=== PATIENT | female | born 1965 | race African-American/Black ===

== ENCOUNTER 2020-04-07 14:27 | Emergency (ER) | payer SELFPAY ==
[2020-04-07] MEDS ORDERED: HEPARIN 25000 UNITS/250 ML D5W 250 ML IV ONE (15:18)
[2020-04-07] MEDS ORDERED: KETOROLAC TROMETHAMINE 30MG/ML ONE (15:38)
[2020-04-07] MEDS ORDERED: ACETAMINOPHEN-CODEINE 300/30MG TAB ONE (15:38)
== END 2020-04-07 16:02 | disposition home or self-care (01) ==
LOC: EDH 14:27
DX: M79.671 Pain in right foot (principal); I10 Essential (primary) hypertension; E11.9 Type 2 diabetes mellitus without complications; Z90.710 Acquired absence of both cervix and uterus; Z88.2 Allergy status to sulfonamides; Z79.899 Other long term (current) drug therapy
CPT/HCPCS: 73600; 73630; 99284; J1885; J1644

== ENCOUNTER 2020-07-28 10:54 | Emergency (ER) | payer SELFPAY ==
[2020-07-28 11:25] LABS: APPEARANCE,URINE Cloudy (CLEAR); BILIRUBIN,URINE Negative (NEGATIVE); COLOR,URINE Dark Yellow (YELLOW); GLUCOSE, URINE (UA) Negative (NEGATIVE); KETONES,URINE Negative (NEGATIVE); LEUKOCYTE ESTERASE ,URINE Moderate (NEGATIVE); NITRATE,URINE Negative (NEGATIVE); OCCULT BLOOD,URINE Negative (NEGATIVE); PH,URINE 6.5 (5.0-8.0); PROTEIN,URINE Trace mg/dL (NEGATIVE)
[2020-07-28 11:30] LABS: RBC,URINE None Seen /HPF (0-1)
[2020-07-28 11:31] LABS: BACTERIA,URINE Moderate /HPF (None Seen); MUCUS,URINE Few LPF (None Seen); SQUAMOUS EPITHELIAL CELL,UR Many /HPF (0-2)
[2020-07-28] MEDS ORDERED: SODIUM CHLORIDE 0.9% 1000ML 1,000 ML IV ONE (12:36)
[2020-07-28] MEDS ORDERED: ONDANSETRON HCL 4 MG/2 ML VIAL ONE (12:36)
[2020-07-28 12:54] LABS: BASOPHILS % (AUTO) 0.5 % (0.0-5.0); HEMATOCRIT 40.9 % (36-48); LYMPHOCYTES % (AUTO) 14.2 % (21.0-51.0); MEAN CORPUSCULAR HGB CONC 32.5 g/dL (32.0-36.0); MEAN CORPUSCULAR VOLUME 89.3 fL (79-99); MONOCYTES % (AUTO) 11.7 % (3.0-13.0); NEUTROPHILS % (AUTO) 72.4 % (40.0-77.0); PLATELET COUNT (AUTO) 210 K/uL (130-400); RED BLOOD CELL COUNT(AUTO) 4.58 MIL/uL (4.00-5.50); WHITE BLOOD COUNT (AUTO) 8.1 K/uL (4.8-10.8)
[2020-07-28 13:10] LABS: ALBUMIN 3.5 g/dL (3.5-5.0); BILIRUBIN,TOTAL 0.2 mg/dL (0.2-1.0); CREATININE 1.2 mg/dL (0.5-1.5); TOTAL PROTEIN, SERUM 7.6 g/dL (6.0-8.3)
[2020-07-28 13:34] LABS: B-TYPE NATRIURETIC PEPTIDE < 5 pg/mL (0-100)
[2020-07-28] MEDS ORDERED: POTASSIUM BICARB/CIT AC 25 MEQ TABLET.EFF ONE (14:18)
== END 2020-07-28 14:36 | disposition home or self-care (01) ==
LOC: EDH 10:54
DX: U07.1 COVID-19 (principal); K52.9 Noninfective gastroenteritis and colitis, unspecified; N39.0 Urinary tract infection, site not specified; E87.6 Hypokalemia; E11.9 Type 2 diabetes mellitus without complications; I10 Essential (primary) hypertension; Z88.2 Allergy status to sulfonamides; Z90.710 Acquired absence of both cervix and uterus
CPT/HCPCS: 36415; 71045; 80053; 81001; 82550; 83605; 83690; 83880; 84484; 85025; 87077; 87088; 87186; 87426; 93005; 96360; 96361; 99285; J2405; J7030; U0003

== ENCOUNTER 2020-07-29 16:48 | Inpatient (IN) | payer OTHER, SELFPAY ==
[~2020-07-29] VITALS: Ht 172.7 cm; Wt 94.6 kg
[2020-07-29 17:37] LABS: CREATININE 1.6 mg/dL (0.5-1.5); POTASSIUM 3.1 mmol/L (3.5-5.1)
[2020-07-29 17:42] LABS: ALBUMIN 3.3 g/dL (3.5-5.0); BILIRUBIN,TOTAL 0.2 mg/dL (0.2-1.0); TOTAL PROTEIN, SERUM 7.4 g/dL (6.0-8.3)
[2020-07-29 17:43] LABS: BASOPHILS % (AUTO) 0.4 % (0.0-5.0); HEMATOCRIT 42.4 % (36-48); LYMPHOCYTES % (AUTO) 26.5 % (21.0-51.0); MEAN CORPUSCULAR HEMOGLOBIN 28.5 pg (27.0-33.0); MEAN CORPUSCULAR HGB CONC 31.6 g/dL (32.0-36.0); MEAN CORPUSCULAR VOLUME 90.2 fL (79-99); MONOCYTES % (AUTO) 6.5 % (3.0-13.0); PLATELET COUNT (AUTO) 195 K/uL (130-400); RED CELL DISTRIBUTION WIDTH 15.9 % (11.0-15.5); WHITE BLOOD COUNT (AUTO) 7.7 K/uL (4.8-10.8)
[2020-07-29] MEDS ORDERED: SODIUM CHLORIDE 0.9% 1000ML 1,000 ML IV ONE (18:00)
[2020-07-29 18:17] LABS: CRP QUANTITATIVE 7.8 mg/L (0.00-9.0)
[2020-07-29] MEDS ORDERED: RENAL DOSE IV SCH (19:00)
[2020-07-29] MEDS ORDERED: RENAL DOSE IV ONE (19:15)
[2020-07-29 19:48] LABS: APPEARANCE,URINE Clear (CLEAR); BILIRUBIN,URINE Negative (NEGATIVE); COLOR,URINE Yellow (YELLOW); GLUCOSE, URINE (UA) Negative (NEGATIVE); KETONES,URINE Trace mg/dL (NEGATIVE); LEUKOCYTE ESTERASE ,URINE Small (NEGATIVE); NITRATE,URINE Negative (NEGATIVE); OCCULT BLOOD,URINE Negative (NEGATIVE); PH,URINE 5.5 (5.0-8.0); PROTEIN,URINE Negative (NEGATIVE); UROBILINOGEN,URINE 0.2 mg/dL (0.2-1.0)
[2020-07-29 19:51] LABS: CREATININE,URINE RANDOM 141 mg/dL (30-135); SODIUM,URINE RANDOM 122 mmol/l (40-220)
[2020-07-29] MEDS: ZOSYN 3.375GM+NS 50ML 50 ML IV SCH (20:00)
[2020-07-29 20:03] LABS: BACTERIA,URINE Few /HPF (None Seen); MUCUS,URINE Few LPF (None Seen); SQUAMOUS EPITHELIAL CELL,UR Many /HPF (0-2)
[2020-07-29] MEDS: ENOXAPARIN SODIUM 60 MG/0.6 ML SQ SCH (21:00)
[2020-07-29] MEDS: DOXYCYCLINE HYCLATE 100 MG TABLET PO SCH (21:00)
[2020-07-30] VITALS (7 sets, daily range): BP systolic 91–113; BP diastolic 44–74
[2020-07-30] MEDS: ZOSYN 3.375GM+NS 50ML 50 ML IV SCH ×3 (04:00→20:43)
[2020-07-30 05:51] LABS: BASOPHILS % (AUTO) 0.3 % (0.0-5.0); EOSINOPHILS % (AUTO) 2.8 % (0.0-8.0); HEMATOCRIT 37.5 % (36-48); LYMPHOCYTES % (AUTO) 24.6 % (21.0-51.0); MEAN CORPUSCULAR HEMOGLOBIN 28.6 pg (27.0-33.0); MEAN CORPUSCULAR HGB CONC 32.5 g/dL (32.0-36.0); MEAN CORPUSCULAR VOLUME 87.8 fL (79-99); MONOCYTES % (AUTO) 6.4 % (3.0-13.0); NEUTROPHILS % (AUTO) 65.5 % (40.0-77.0); PLATELET COUNT (AUTO) 193 K/uL (130-400); RED BLOOD CELL COUNT(AUTO) 4.27 MIL/uL (4.00-5.50); RED CELL DISTRIBUTION WIDTH 15.9 % (11.0-15.5)
[2020-07-30 06:14] LABS: ALBUMIN 2.8 g/dL (3.5-5.0); BILIRUBIN,TOTAL 0.2 mg/dL (0.2-1.0); CREATININE 1.1 mg/dL (0.5-1.5); POTASSIUM 3.3 mmol/L (3.5-5.1); TOTAL PROTEIN, SERUM 6.3 g/dL (6.0-8.3)
[2020-07-30] MEDS: ENOXAPARIN SODIUM 60 MG/0.6 ML SQ SCH ×2 (10:30→20:43)
[2020-07-30] MEDS: DOXYCYCLINE HYCLATE 100 MG TABLET PO SCH ×2 (10:30→20:41)
[2020-07-30] MEDS: LACTATED RINGERS 1000ML 1,000 ML IV SCH ×2 (12:11→19:54)
[2020-07-31 03:00] VITALS: BP 102/71
[2020-07-31] MEDS: ZOSYN 3.375GM+NS 50ML 50 ML IV SCH ×3 (04:41→20:07)
[2020-07-31] MEDS: LACTATED RINGERS 1000ML 1,000 ML IV SCH ×2 (04:41→15:09)
[2020-07-31 05:33] LABS: BASOPHILS % (AUTO) 0.3 % (0.0-5.0); HEMATOCRIT 38.4 % (36-48); LYMPHOCYTES % (AUTO) 19.9 % (21.0-51.0); MEAN CORPUSCULAR HEMOGLOBIN 28.8 pg (27.0-33.0); MEAN CORPUSCULAR HGB CONC 32.6 g/dL (32.0-36.0); MEAN CORPUSCULAR VOLUME 88.5 fL (79-99); MONOCYTES % (AUTO) 4.7 % (3.0-13.0); NEUTROPHILS % (AUTO) 74.5 % (40.0-77.0); PLATELET COUNT (AUTO) 193 K/uL (130-400); RED BLOOD CELL COUNT(AUTO) 4.34 MIL/uL (4.00-5.50); RED CELL DISTRIBUTION WIDTH 15.6 % (11.0-15.5); WHITE BLOOD COUNT (AUTO) 7.2 K/uL (4.8-10.8)
[2020-07-31 05:47] LABS: ALBUMIN 2.9 g/dL (3.5-5.0); BILIRUBIN,DIRECT 0.1 mg/dL (0.0-0.3); BILIRUBIN,TOTAL 0.3 mg/dL (0.2-1.0); CREATININE 1.2 mg/dL (0.5-1.5); POTASSIUM 3.1 mmol/L (3.5-5.1); TOTAL PROTEIN, SERUM 6.6 g/dL (6.0-8.3)
[2020-07-31] MEDS ORDERED: POTASSIUM CHLORIDE 20MEQ/100ML 100 ML IV PRN (07:45)
[2020-07-31] MEDS ORDERED: POTASSIUM CHLORIDE 10% ELIXIR 20 MEQ/15 ML UDCUP PO PRN (07:45)
[2020-07-31 08:00] VITALS: BP 98/70
[2020-07-31] MEDS: ENOXAPARIN SODIUM 60 MG/0.6 ML SQ SCH ×2 (08:27→20:08)
[2020-07-31] MEDS ORDERED: LORAZEPAM 0.5 MG TABLET ONE (10:58)
[2020-07-31] MEDS ORDERED: LORAZEPAM 0.5 MG TABLET PO SCH (11:44)
[2020-07-31 12:00] VITALS: BP 100/68
[2020-07-31] MEDS: POTASSIUM CHLORIDE 20 MEQ ERTAB PO PRN ×3 (12:50→17:35)
[2020-07-31 18:52] VITALS: BP 96/70
[2020-07-31 19:00] VITALS: BP 90/72
[2020-08-01] VITALS: BP 101/72
[2020-08-01] MEDS: LACTATED RINGERS 1000ML 1,000 ML IV SCH ×2 (01:45→11:45)
[2020-08-01 04:00] VITALS: BP 110/73
[2020-08-01] MEDS: ZOSYN 3.375GM+NS 50ML 50 ML IV SCH ×3 (05:31→20:06)
[2020-08-01 06:20] LABS: BASOPHILS % (AUTO) 0.3 % (0.0-5.0); HEMATOCRIT 38.6 % (36-48); LYMPHOCYTES % (AUTO) 26.2 % (21.0-51.0); MEAN CORPUSCULAR HEMOGLOBIN 28.7 pg (27.0-33.0); MEAN CORPUSCULAR HGB CONC 33.4 g/dL (32.0-36.0); MONOCYTES % (AUTO) 3.3 % (3.0-13.0); NEUTROPHILS % (AUTO) 69.8 % (40.0-77.0); PLATELET COUNT (AUTO) 191 K/uL (130-400); RED BLOOD CELL COUNT(AUTO) 4.49 MIL/uL (4.00-5.50); RED CELL DISTRIBUTION WIDTH 15.2 % (11.0-15.5); WHITE BLOOD COUNT (AUTO) 7.3 K/uL (4.8-10.8)
[2020-08-01 06:37] LABS: CREATININE 1.3 mg/dL (0.5-1.5); CRP QUANTITATIVE 32.2 mg/L (0.00-9.0); POTASSIUM 3.3 mmol/L (3.5-5.1)
[2020-08-01 08:00] VITALS: BP 109/76
[2020-08-01] MEDS: ENOXAPARIN SODIUM 60 MG/0.6 ML SQ SCH ×2 (08:25→20:08)
[2020-08-01 12:00] VITALS: BP 109/76
[2020-08-01 16:00] VITALS: BP 125/79
[2020-08-01 19:54] VITALS: BP 100/72
[2020-08-01] MEDS: GUAIFENESIN-DM 200/20 MG 10 ML PO PRN (20:06)
[2020-08-02] VITALS (7 sets, daily range): BP systolic 108–148; BP diastolic 67–83
[2020-08-02] MEDS: ZOSYN 3.375GM+NS 50ML 50 ML IV SCH ×3 (04:34→20:36)
[2020-08-02 06:10] LABS: BASOPHILS % (AUTO) 0.2 % (0.0-5.0); HEMATOCRIT 39.3 % (36-48); LYMPHOCYTES % (AUTO) 30.9 % (21.0-51.0); MEAN CORPUSCULAR HEMOGLOBIN 28.5 pg (27.0-33.0); MEAN CORPUSCULAR HGB CONC 33.6 g/dL (32.0-36.0); MEAN CORPUSCULAR VOLUME 84.9 fL (79-99); MONOCYTES % (AUTO) 3.6 % (3.0-13.0); NEUTROPHILS % (AUTO) 64.4 % (40.0-77.0); PLATELET COUNT (AUTO) 173 K/uL (130-400); RED BLOOD CELL COUNT(AUTO) 4.63 MIL/uL (4.00-5.50); RED CELL DISTRIBUTION WIDTH 15.2 % (11.0-15.5); WHITE BLOOD COUNT (AUTO) 5.5 K/uL (4.8-10.8)
[2020-08-02] MEDS: POTASSIUM CHLORIDE 20 MEQ ERTAB PO PRN (06:11)
[2020-08-02 06:34] LABS: CREATININE 1.2 mg/dL (0.5-1.5); MAGNESIUM 1.9 mg/dL (1.80-2.40); POTASSIUM 3.7 mmol/L (3.5-5.1)
[2020-08-02] MEDS: ENOXAPARIN SODIUM 60 MG/0.6 ML SQ SCH ×2 (09:50→20:36)
[2020-08-02] MEDS ORDERED: SODIUM CHLORIDE 0.9% 100 ML IV ONE (13:41)
[2020-08-02] MEDS ORDERED: METF-446 PO (15:19)
[2020-08-02] MEDS ORDERED: LISI40TA9 PO (15:19)
[2020-08-02] MEDS ORDERED: HYDR25TA PO (15:19)
[2020-08-03 03:12] VITALS: BP 107/80
[2020-08-03] MEDS: ZOSYN 3.375GM+NS 50ML 50 ML IV SCH ×3 (04:14→20:08)
[2020-08-03 06:00] LABS: BASOPHILS % (AUTO) 0.2 % (0.0-5.0); EOSINOPHILS % (AUTO) 2.9 % (0.0-8.0); HEMATOCRIT 40.4 % (36-48); LYMPHOCYTES % (AUTO) 21.2 % (21.0-51.0); MEAN CORPUSCULAR HEMOGLOBIN 28.5 pg (27.0-33.0); MEAN CORPUSCULAR HGB CONC 33.4 g/dL (32.0-36.0); MEAN CORPUSCULAR VOLUME 85.4 fL (79-99); MONOCYTES % (AUTO) 3.4 % (3.0-13.0); NEUTROPHILS % (AUTO) 71.3 % (40.0-77.0); PLATELET COUNT (AUTO) 196 K/uL (130-400); RED BLOOD CELL COUNT(AUTO) 4.73 MIL/uL (4.00-5.50); RED CELL DISTRIBUTION WIDTH 15.3 % (11.0-15.5); WHITE BLOOD COUNT (AUTO) 6.3 K/uL (4.8-10.8)
[2020-08-03 06:19] LABS: ALBUMIN 2.7 g/dL (3.5-5.0); BILIRUBIN,TOTAL 0.3 mg/dL (0.2-1.0); CREATININE 1.2 mg/dL (0.5-1.5); CRP QUANTITATIVE 30.8 mg/L (0.00-9.0); POTASSIUM 3.6 mmol/L (3.5-5.1); TOTAL PROTEIN, SERUM 7.1 g/dL (6.0-8.3)
[2020-08-03 08:00] VITALS: BP 114/75
[2020-08-03] MEDS: ENOXAPARIN SODIUM 60 MG/0.6 ML SQ SCH ×2 (08:32→20:08)
[2020-08-03 12:00] VITALS: BP 101/61
[2020-08-03 16:00] VITALS: BP 140/77
[2020-08-03 20:00] VITALS: BP 100/55
[2020-08-03] MEDS: GUAIFENESIN-DM 200/20 MG 10 ML PO PRN (20:19)
[2020-08-04] MEDS: GUAIFENESIN-DM 200/20 MG 10 ML PO PRN (01:40)
[2020-08-04 04:00] VITALS: BP 114/66
[2020-08-04] MEDS: ZOSYN 3.375GM+NS 50ML 50 ML IV SCH ×2 (04:18→12:00)
[2020-08-04 05:51] LABS: BASOPHILS % (AUTO) 0.1 % (0.0-5.0); EOSINOPHILS % (AUTO) 0.1 % (0.0-8.0); HEMATOCRIT 39.1 % (36-48); LYMPHOCYTES % (AUTO) 20.1 % (21.0-51.0); MEAN CORPUSCULAR HEMOGLOBIN 27.9 pg (27.0-33.0); MEAN CORPUSCULAR HGB CONC 32.7 g/dL (32.0-36.0); MEAN CORPUSCULAR VOLUME 85.4 fL (79-99); MONOCYTES % (AUTO) 3.6 % (3.0-13.0); NEUTROPHILS % (AUTO) 75.1 % (40.0-77.0); PLATELET COUNT (AUTO) 233 K/uL (130-400); RED BLOOD CELL COUNT(AUTO) 4.58 MIL/uL (4.00-5.50); RED CELL DISTRIBUTION WIDTH 15.1 % (11.0-15.5); WHITE BLOOD COUNT (AUTO) 6.7 K/uL (4.8-10.8)
[2020-08-04 06:06] LABS: CREATININE 1.1 mg/dL (0.5-1.5); POTASSIUM 3.5 mmol/L (3.5-5.1)
[2020-08-04 07:33] VITALS: BP 108/68
[2020-08-04] MEDS: ENOXAPARIN SODIUM 60 MG/0.6 ML SQ SCH (08:36)
[2020-08-04 11:30] VITALS: BP 122/77
[2020-08-04 12:51] LABS: HEMOGLOBIN A1C 6.7 % (4.0-6.0)
[2020-08-04 16:39] VITALS: BP 116/79
== END 2020-08-04 17:30 | DRG 871 ==
LOC: EDH 16:48 → EDHIP 16:49 → 2AH 07-30 00:40
PROVIDERS: ADMIT Internal Medicine; ATTEND Internal Medicine
DX: A41.9 Sepsis, unspecified organism (principal); U07.1 COVID-19; J12.82 Pneumonia due to coronavirus disease 2019; N17.0 Acute kidney failure with tubular necrosis; K85.90 Acute pancreatitis without necrosis or infection, unspecified; N18.2 Chronic kidney disease, stage 2 (mild); Z90.710 Acquired absence of both cervix and uterus; I12.9 Hypertensive chronic kidney disease with stage 1 through stage 4 chronic kidney disease, or unspecified chronic kidney disease; E11.22 Type 2 diabetes mellitus with diabetic chronic kidney disease; E86.9 Volume depletion, unspecified; Z88.2 Allergy status to sulfonamides; R03.1 Nonspecific low blood-pressure reading
CPT/HCPCS: 36415; 70450; 71045; 74181; 76705; 80048; 80053; 80076; 81001; 81025; 82550; 82570; 82728; 82948; 83036; 83605; 83615; 83690; 83735; 83880; 84145; 84300; 84484; 85025; 85378; 86140; 86850; 86900; 86901; 87040; 87088; 87426; 87804; 93005; 93306; 93356; 93970; G0378; J1650; J2543; J7120

== ENCOUNTER 2023-04-11 12:26 | Emergency (ER) | payer BC, OTHER ==
[~2023-04-11] VITALS: Ht 172.7 cm; Wt 89.4 kg
[2023-04-11 12:31] VITALS: BP 113/82; PULSE 102; RESP 16; O2SAT 99
[2023-04-11] MEDS ORDERED: DEXAMETHASONE SOD PHOSPHATE 4 MG/ML 1ML VIAL IM ONE (13:30)
[2023-04-11] MEDS ORDERED: GUAIFENESIN/DEXTROMETHORPHAN 1 EACH TAB.SR.12H PO ONE (13:30)
[2023-04-11 13:38] LABS: APPEARANCE,URINE CLOUDY (CLEAR); BILIRUBIN,URINE NEGATIVE (NEGATIVE); COLOR,URINE LIGHT-YELLOW (YELLOW); GLUCOSE, URINE (UA) NEGATIVE (NEGATIVE); KETONES,URINE NEGATIVE (NEGATIVE); LEUKOCYTE ESTERASE ,URINE 500 Leu/uL (NEGATIVE); NITRATE,URINE NEGATIVE (NEGATIVE); OCCULT BLOOD,URINE NEGATIVE (NEGATIVE); PROTEIN,URINE 30 mg/dL (NEGATIVE); UROBILINOGEN,URINE 0.2 mg/dL (0.2-1.0)
[2023-04-11 13:44] LABS: ADD UA MICROSCOPIC YES
[2023-04-11 13:46] LABS: BACTERIA,URINE RARE /HPF (None Seen); MUCUS,URINE RARE LPF (None Seen); SQUAMOUS EPITHELIAL CELL,UR MANY /HPF (0-2)
[2023-04-11 14:28] LABS: RAPID GROUP A STREP negative (NEGATIVE)
[2023-04-11 14:30] LABS: SARS-CoV-2, RNA, NAAT NEGATIVE SARS CoV-2 (NEGATIVE)
[2023-04-11 14:38] LABS: INFLUENZA TYPE B Negative For Type B (NEGATIVE)
[2023-04-11 14:48] LABS: INFLUENZA TYPE A Positive For Type A (NEGATIVE)
[2023-04-11] MEDS ORDERED: OSEL75 PO (14:56)
[2023-04-11] MEDS ORDERED: FLUT16H NASAL (14:56)
[2023-04-11] MEDS ORDERED: CEPH500B PO (14:56)
[2023-04-11] MEDS ORDERED: CEFTRIAXONE 1G VIAL IM ONE (15:00)
[2023-04-11] MEDS ORDERED: OSELTAMIVIR PHOSPHATE 75 MG CAP PO ONE (15:00)
== END 2023-04-11 15:19 | disposition home or self-care (01) ==
LOC: EDH 12:26
DX: J11.1 Influenza due to unidentified influenza virus with other respiratory manifestations (principal); N39.0 Urinary tract infection, site not specified; R05.9 Cough, unspecified; R09.81 Nasal congestion; Z20.822 Contact with and (suspected) exposure to COVID-19
CPT/HCPCS: 99284; 71045; 87635; 87088; 87880; 87804 ×2; 81001; 96372 ×2; J1100; C9803; J0696

== ENCOUNTER 2024-12-30 18:57 | Inpatient (IN) | payer SELFPAY ==
[~2024-12-30] VITALS: Ht 170.2 cm; Wt 100.3 kg
[~2024-12-30 18:57] MED LIST: CEPH500B PO; FLUT16H NASAL; OSEL75 PO
[2024-12-30 19:54] LABS: IMMATURE GRANULOCYTE ABSOLUTE 0.04 K/uL (0-1); NUCLEATED RED BLOOD CELLS 0.3 % (0.0-0.19); PLATELET COUNT (AUTO) 212 K/uL (130-400); RED BLOOD CELL COUNT(AUTO) 3.37 MIL/uL (4.00-5.50); RED CELL DISTRIBUTION WIDTH 19.3 % (11.0-15.5); WHITE BLOOD COUNT (AUTO) 6.4 K/uL (4.8-10.8)
--- NOTE | 2024-12-30 20:04 | HMCIMG ---
CLINICAL INFORMATION Shortness of breath COMPARISON None. TECHNIQUE Frontal view chest. FINDINGS Lines and tubes: None Lungs: Hazy opacities in the left lung base, may be due to poor radiographic penetration or layering pleural effusion. No dense consolidation. Pleura: Unremarkable. No effusion or pneumothorax. Cardiomediastinal Silhouette: Unremarkable. Bones: Normal for age. Soft Tissues: Bilateral breast spacers. IMPRESSION Hazy opacities in the left lung base, may be due to poor radiographic penetration or layering pleural effusion. No dense consolidation. Consider follow-up two-view radiograph. /[place]
[2024-12-30 20:14] LABS: CREATININE 1.5 mg/dL (0.5-1.0); GLOMERULAR FILTR. RATE CALC 40.0 mL/min (>90); GLUCOSE,RANDOM 110.0 mg/dL (70-105); SODIUM SERUM 141.0 mmol/L (136-145); UREA NITROGEN, BLOOD 27.0 mg/dL (7-18)
--- NOTE | 2024-12-30 20:33 | HMCIMG ---
CLINICAL INFORMATION Bilateral lower extremity swelling COMPARISON None. TECHNIQUE Mcqueen scale, color flow, and spectral Doppler sonography of the deep venous system of the Bilateral lower extremity FINDINGS RIGHT Common femoral vein: Patent and easily compressible without intraluminal thrombus. Femoral vein: Patent and easily compressible without intraluminal thrombus. Popliteal vein: Patent and easily compressible without intraluminal thrombus. Doppler analysis: Normal venous flow including appropriate response to Valsalva, respiratory variation, and calf augmentation. CALF Posterior tibial vein: Patent and easily compressible without intraluminal thrombus. Peroneal veins: Patent and easily compressible without intraluminal thrombus. LEFT Common femoral vein: Patent and easily compressible without intraluminal thrombus. Femoral vein: Patent and easily compressible without intraluminal thrombus. Popliteal vein: Patent and easily compressible without intraluminal thrombus. Doppler analysis: Normal venous flow including appropriate response to Valsalva, respiratory variation, and calf augmentation. CALF Posterior tibial vein: Patent and easily compressible without intraluminal thrombus. Peroneal veins: Patent and easily compressible without intraluminal thrombus. IMPRESSION No deep venous thrombosis. /[place]
--- NOTE | 2024-12-30 21:44 | HP ---
History of Present Illness Reason for Visit: lower extremity edema History of Present Illness Ms. Peres is a 59-year-old female that was seen and examined today on 12/30/2024. Patient is a good historian of personal health Patient reports that she came to the emergency department with a chief complaint of lower extremity edema. Onset was two weeks ago. Location is bilateral lower extremities. Duration is on and off progressively getting worse over the last two months. There was no alleviating factors. There was no aggravating factors. Patient denies any associated shortness of breath or chest pain. Today in the emergency department creatinine 1.5, BUN 27, no urinalysis has been collected or sent to lab, chest x-ray shows left lower lobe opacities, venous ultrasound is unremarkable. Emergency room physician recommended that patient be admitted with a diagnosis of pneumonia and acute kidney injury. Past Medical History ADDITIONAL PAST MEDICAL HISTORY: [Diabetes mellitius type2, hypertension, breast CA getting treatment at [facility] with Dr. Torres, hyperlipidemia, asthma, DVT with right lower extremity filter in place, on chronic anticoagulation with Eliquis 5 mg twice daily SOCIAL HISTORY: [Negative for smoking, alcohol use, drug use. Patient lives wi th her son, Kwame Peres . Patient is typically independent of all her ADLs. Patient denies difficulty paying her bills.] SURGICAL HISTORY: [Right lower extremity DVT filter, lumpectomy, bilateral mastectomy with placement of expanders pending reconstructive breast surgery] Review of Systems General: No Fever, No Chills, No Night Sweats, No Fatigue, No Malaise, No Appetite, No Other HEENT: No Head Aches, No Visual Changes, No Eye Pain, No Ear Pain, No Dysphasia, No Sinus Congestion, No Post Nasal Drip, No Sore Throat, No Other Pulmonary: No Dyspnea, No Cough, No Pleuritic Chest Pain, No Other Cardiovascular: Edema; No: Chest Pain, Palpitations, Orthopnea, Paroxysmal Noc. Dyspnea, Lt Headedness, Other Gastrointestinal: No: Nausea, Vomiting, Abdominal Pain, Diarrhea, Constipation, Melena, Hematochezia, Other Genitourinary: No Dysuria, No Frequency, No Incontinence, No Hematuria, No Retention, No Other Musculoskeletal: No: other, neck pain, shoulder pain, arm pain, back pain, hand pain, leg pain, foot pain Skin: No Urticaria, No Rash, No Other Neurological: No: Weakness, Numbness, Incoordination, Change in speech, Confusion, Seizures, Other Allergies: Coded Allergies: Sulfa (Sulfonamide Antibiotics) (Verified Allergy, Unknown, 07/29/20) Scheduled Cephalexin Monohydrate (Keflex), 500 MG PO TID Fluticasone Propionate (Flonase Nasal [place]), 50 MCG NASAL ONCE Oseltamivir Phosphate (Tamiflu), 75 MG PO BID Exam Vital Signs Vital Signs Date Time Temp Pulse Resp B/P (MAP) Pulse Ox O2 Delivery O2 Flow Rate FiO2 12/30/24 19:15 98.6 87 18 166/89 96 Room Air* 0 21 General Appearance: Alert, Oriented X3, Cooperative, mild distress HEENT: Atraumatic, EOMI Respiratory: Other (Left lower lobe rhonchi) Cardiovascular: Regular rate, Regular rhythm, Normal S1, Normal S2 Abdominal: No tenderness Extremities: No edema Skin: No rashes, No breakdown, No significant lesion Neuro: Normal gait, Normal speech, Strength at 5/5 X4 ext, Sensation intact, Cranial nerves 3-12 NL Psych/Mental Status: Mental status NL, Mood NL, Thoughts/Content NL Assessment/Plan ASSESSMENT: [ Pneumonia, POA Acute kidney injury, POA Diabetes mellitius type2 Hypertension Breast CA Asthma History of DVT on chronic anticoagulation with Eliquis Hyperlipidemia PLAN: [ Admit patient to medical floor as inpatient status. Pneumonia: Empiric antibiotic therapy with doxycycline and Rocephin Check Sputum culture, follow up with the results Supportive treatment with Tylenol, guaifenesin DuoNebs every 6 hours Acute kidney injury: Calculate FENA Check urine sodium, creatinine, osmolality Avoid nephrotoxic agents when possible Renally dose all medications when possible Patient will be followed by Nephrology Service, Dr. Marte Lactated Ringer's at 75 mL/HR Monitor patient's labs. Weight patient daily. Monitor intake and output. Diabetes mellitus type 2: Check hemoglobin A1c in a.m. Glucometer checks a.c. and HS 1800 ADA diet Humulin R sliding scale Hypertension, asthma, hyperlipidemia, history of DVT: At time of admission home medications have not been reconciled Consider resuming home medications once they have been reconciled For now: Hydralazine 10 mg IV every 4 hours for systolic blood pressure greater than 160 mmHg Administered patient's home dose of Eliquis 5 mg by mouth twice daily As-needed albuterol for shortness of breath or wheezing 2.5 mg nebulized Atorvastatin 40 mg by mouth once daily Breast CA: Have patient follow up with her oncologist, Dr. Torres in the outpatient setting. Patient to follow up at [facility], [place] GI prophylaxis, Protonix DVT prophylaxis, resume patient's DOAC, heparin ADVANCED CARE PLANNING 1. Which of the following were discussed? Hospice Care - Yes Therapeutic options - yes Advance Directives - Yes - patient states he does not have any advance directives in place at this time, however her son can make decisions for her if she becomes unable. Other discussions - patient wishes to remain a full code 2. Discussed with who? Patient 3. Voluntary nature of this service was explained to the patient? Yes 4. Amount of time spent - ___16 minutes____ 5. Reviewed by Physician? (if this service was performed by NPP) Yes This document was generated in part using voice recognition software, occasional wrong word or sound alike substitutions may have occurred due to the inherent limitations of voice recognition software. Read the chart carefully and recognize using context, where the substitutions have occurred. Although every effort was made to edit the content, warehouse receiving clerk and typing errors may occur ATTESTATION BY PHYSICIAN I have seen and examined the patient. I reviewed the documentation, medical decision making, and treatment plan as noted by the mid-level provider above. I agree with the findings and plan of care. ] RAVI BRANNON [facility] Dec 30, 2024 21:44
--- NOTE | 2024-12-30 22:17 | ERN ---
General Chief Complaint: LOWER EXTREMITY EDEMA Stated Complaint: BLE SWELLING Time Seen by MD: 19:03 Time Seen by Midlevel: 19:03 Source: patient History of Present Illness Initial Comments 59-year-old female who presents to the emergency department due to bilateral lower extremity swelling. Patient has a history of pulmonary embolisms, DVTs therefore her PCP's referred her to the emergency department to rule out DVTs. Patient reports shortness of breath however states that is chronic ever since she got sick from COVID. Denies further associated symptoms. PMHx breast cancer, HTN, DM, PE, DVT Allergies: Coded Allergies: Sulfa (Sulfonamide Antibiotics) (Verified Allergy, Unknown, 07/29/20) Home Meds Active Scripts Fluticasone Propionate (Flonase Nasal [place]) 50 Mcg/Actuation [place], 50 MCG NASAL ONCE, #1 BOTTLE 0 Refills Prov:KIRK MILLER [facility] 04/11/23 Cephalexin Monohydrate (Keflex) 500 Mg Cap, 500 MG PO TID for 7 Days, #21 CAP 0 Refills Prov:KIRK MILLER [facility] 04/11/23 Oseltamivir Phosphate (Tamiflu) 75 Mg Cap, 75 MG PO BID for 5 Days, #10 CAP 0 Refills Prov:KIRK MILLER [facility] 04/11/23 Past Medical History Past Medical History: Cancer, Diabetes-Type II, DVT, High Cholesterol, Hypertension Medical History Other: BREAST CA Past Surgical History: Hysterectomy Surgical History Other: DOUBLE MASTECTOMY ROS Dictation Constitutional: Negative for fever,chills, and weight loss Eyes: Negative for injury, pain,redness, and discharge ENT: Negative for injury,pain or swelling Cardiovascular: Positive bilateral lower extremity swelling Negative for chest pain, palpitations Respiratory: Positive shortness of breath Negative for cough, and wheezing, Abdomen/GI: Negative for abdominal pain, nausea, vomiting, diarrhea, and constipation Back: Negative for injury and pain : Negative for painful urination, bleeding or discharge MS/Extremity: Negative for injury and deformity Skin: Negative for rash, and discoloration Neuro: Negative for headache, weakness, numbness, tingling, and seizure Psych: Negative for suicide ideation, homicidal ideation, and hallucinations Physical Exam Physical Exam Dictation General: awake, alert, no acute distress Head/Face: Normocephalic, atraumatic Eyes: PERRL, EOMI, normal conjunctiva ENT: oral cavity clear, oral mucosa moist Neck: Supple, normal range of motion Cardiovascular: RRR, normal S1/S2. Bilateral lower extremity edema Respiratory: CTAB, no respiratory distress, no rales or wheezes Skin: Warm, dry, normal turgor, no rash MS/Extremity: Pulses equal, no cyanosis, neurovascular intact, FROM Neuro: COAx4, GCS 15, strength 5/5, CN 2-12 intact, normal cerebellar exam, normal gait Psych: Normal behavior, mood, and affect normal Results Laboratory and Microbiology Lab and Micro Result Labs Reviewed?: Yes EKG/XRAY/US/CT/MRI X-RAY Comment REASON: SOB ORDERING PHYSICIAN: INA ARMIREZ PROCEDURE: CXR1VW - CHEST 1VW CLINICAL INFORMATION Shortness of breath COMPARISON None. TECHNIQUE Frontal view chest. FINDINGS Lines and tubes: None Lungs: Hazy opacities in the left lung base, may be due to poor radiographic penetration or layering pleural effusion. No dense consolidation. Pleura: Unremarkable. No effusion or pneumothorax. Cardiomediastinal Silhouette: Unremarkable. Bones: Normal for age. Soft Tissues: Bilateral breast spacers. IMPRESSION Hazy opacities in the left lung base, may be due to poor radiographic penetration or layering pleural effusion. No dense consolidation. Consider follow-up two-view radiograph. /[place] DICTATED BY: GURJIT BUCKNER MD DATE: 12/30/242102 Ultrasound Comment REASON: R/O DVT, LE swelling ORDERING PHYSICIAN: INA RAMIREZ PROCEDURE: VENOUS BONITA - US VENOUS DOPPLER BILATERAL CLINICAL INFORMATION Bilateral lower extremity swelling COMPARISON None. TECHNIQUE Mcqueen scale, color flow, and spectral Doppler sonography of the deep venous system of the Bilateral lower extremity FINDINGS RIGHT Common femoral vein: Patent and easily compressible without intraluminal thrombus. Femoral vein: Patent and easily compressible without intraluminal thrombus. Popliteal vein: Patent and easily compressible without intraluminal thrombus. Doppler analysis: Normal venous flow including appropriate response to Valsalva, respiratory variation, and calf augmentation. CALF Posterior tibial vein: Patent and easily compressible without intraluminal thrombus. Peroneal veins: Patent and easily compressible without intraluminal thrombus. LEFT Common femoral vein: Patent and easily compressible without intraluminal thrombus. Femoral vein: Patent and easily compressible without intraluminal thrombus. Popliteal vein: Patent and easily compressible without intraluminal thrombus. Doppler analysis: Normal venous flow including appropriate response to Valsalva, respiratory variation, and calf augmentation. CALF Posterior tibial vein: Patent and easily compressible without intraluminal thrombus. Peroneal veins: Patent and easily compressible without intraluminal thrombus. IMPRESSION No deep venous thrombosis. /[place] DICTATED BY: GURJIT BUCKNER MD DATE: 12/30/242131 MDM MDM: Differential diagnosis: Electrolyte imbalance, fluid overload, DVTs Rationale: 59-year-old female who presents to the emergency department due to bilateral lower extremity swelling. Patient has a history of pulmonary embolisms, DVTs therefore her PCP's referred her to the emergency department to rule out DVTs. Patient reports shortness of breath however states that is chronic ever since she got sick from COVID. Denies further associated symptoms. PMHx breast cancer, HTN, DM, PE, DVT Bilateral lower extremity edema noted. Venous ultrasound obtained negative for DVTs. Labs obtained indicate anemia with hemoglobin of 10.5, BUN 2, creatinine 1.5. Compared with lab results that patient had from two weeks ago previous creatinine was 1.08. Chest x-ray shows hazy opacities of the left lung. Pending UA. Patient was educated on findings, diagnosis, decision for admission. Patient verbalized understanding and agrees with admission. Case discussed with hospitalist who accepts admission. Previous outside records reviewed: Old ER visits. Risk of complication and/or morbidity or mortality of patient management: None Medications-Per medication reconciliation Need for hospitalization: Patient does meet criteria for hospitalization. Need for emergency major/minor surgery: No There are no social concerns with this patient. Prescription drug management Prescriptions will include symptomatic care Patient's prior external medical records from other ER visits were reviewed by me as indicated. Prior testing and results from previous visits were reviewed. Prior tests were taken into account with medical decision making and resource utilization, independent historian/historians were used to obtain complete medical history. I independently interpreted the test that were performed, results were reviewed by me and considered findings on radiology if ordered. Medical management and examination interpretation discussions were had by me with other qualified healthcare professionals as indicated for the patient's care. ED Course Vital Signs Date Time Temp Pulse Resp B/P (MAP) Pulse Ox O2 Delivery O2 Flow Rate FiO2 12/30/24 18:58 98.1 80 16 156/86 99 Room Air 0 DX & DISP Disposition: Inpatient Departure Impression: Primary Impression: JAVIER (acute kidney injury) Condition: Stable Referrals: JEREMIAH IDAZ (PCP) I performed the substantive portion of the visit. I have reviewed and personally made and approve the management plan that is documented in the notes by myself or the BOB. I acknowledge full responsibility for the patient's management plan. INA RAMIREZ Dec 30, 2024 22:17
[2024-12-30] MEDS: LACTATED RINGERS 1000ML 1,000 ML IV SCH (22:34)
[2024-12-30] MEDS: DOXYCYCLINE 100MG+NS 250ML 250 ML IV SCH (23:08)
[2024-12-31] VITALS (14 sets, daily range): BP systolic 123–162; BP diastolic 78–97; PULSE 62–85; RESP 18–20; TEMP 97.3–98.2; O2SAT 95–100
[2024-12-31] MEDS: SODIUM CHLORIDE 3% FOR INHALATION 4 ML/AMP VIAL.NEB IH ONE (00:34)
--- NOTE | 2024-12-31 03:16 | NUR ---
REPORT GIVEN TO NURSE HARRINGTON, ALL QUESTIONS ANSWERED AT THIS TIME.
[2024-12-31 03:21] LABS: APPEARANCE,URINE CLEAR (CLEAR); GLUCOSE, URINE (UA) NEGATIVE (NEGATIVE); LEUKOCYTE ESTERASE ,URINE 500 Leu/uL (NEGATIVE); NITRATE,URINE NEGATIVE (NEGATIVE); OCCULT BLOOD,URINE SMALL (NEGATIVE)
[2024-12-31 03:25] LABS: CREATININE,URINE RANDOM 66.95 mg/dL (30-135)
[2024-12-31 03:36] LABS: ADD UA MICROSCOPIC YES
[2024-12-31 03:38] LABS: SQUAMOUS EPITHELIAL CELL,UR FEW /HPF (0-2)
--- NOTE | 2024-12-31 03:50 | NUR ---
ADMISSION NOTE PATIENT RECEIVED TO ROOM 406. PATIENT ALERT, ORIENTED, AND ABLE TO MAKE NEEDS KNOWN. PATIENT SETTLED ON SCDS, ON ROOM AIR AT THIS TIME. HOME MEDS CONFIRMED. CALL LIGHT IN REACH OF PATIENT.
[2024-12-31] MEDS ORDERED: ALPH600C8 PO (04:53)
[2024-12-31] MEDS ORDERED: HYDR-4060 PO (04:53)
[2024-12-31] MEDS ORDERED: BUDE0.5A3 NEB (04:53)
[2024-12-31] MEDS ORDERED: ALBU18HF7 IH (04:53)
[2024-12-31] MEDS ORDERED: LETR2.5T7 PO (04:53)
[2024-12-31] MEDS ORDERED: PREG150C47 PO (04:53)
[2024-12-31] MEDS ORDERED: LATA2.5D7 OP (04:53)
[2024-12-31] MEDS ORDERED: PROC-3 PO (04:53)
[2024-12-31] MEDS ORDERED: KETO15CR2 TP (04:53)
[2024-12-31] MEDS ORDERED: EZET10TA48 PO (04:53)
[2024-12-31] MEDS ORDERED: LISI40TA15 PO (04:53)
[2024-12-31] MEDS ORDERED: APIX2.5T PO (04:53)
[2024-12-31] MEDS ORDERED: TRAM50TA4 PO (04:53)
[2024-12-31] MEDS ORDERED: METF-444 PO (04:53)
[2024-12-31] MEDS ORDERED: AMLO5TAB6 PO (04:53)
[2024-12-31] MEDS ORDERED: ACET-3859 PO (04:53)
[2024-12-31] MEDS ORDERED: LOPE2 PO (04:55)
[2024-12-31] MEDS: ALBUTEROL 0.083% 2.5 MG/3 ML INH IH SCH (06:00)
[2024-12-31 06:21] LABS: IMMATURE GRANULOCYTE ABSOLUTE 0.04 K/uL (0-1); NUCLEATED RED BLOOD CELLS 0.0 % (0.0-0.19); PLATELET COUNT (AUTO) 184 K/uL (130-400); RED BLOOD CELL COUNT(AUTO) 3.36 MIL/uL (4.00-5.50); RED CELL DISTRIBUTION WIDTH 19.1 % (11.0-15.5); WHITE BLOOD COUNT (AUTO) 5.1 K/uL (4.8-10.8)
--- NOTE | 2024-12-31 06:37 | EKG ---
[facility] Test Date: 2024-12-30 Test Time: 20:23:41 Pat Name: YNES SOLORZANO Department: [facility] Room: 406 1 Gender: F Hospice Clinical Supervisor: [id number] : 1965 Requested By: INA RAMIREZ Order Number: [id number] Reading MD: Nona Haynes Measurements Intervals Fluker Rate: 66 P: 24 NC: 203 QRS: -10 QRSD: 93 T: 25 QT: 407 QTc: 428 Interpretive Statements Sinus rhythm Borderline prolonged NC interval Probable lateral infarct, old Compared to ECG 07/29/2020 17:40:31 No significant changes Electronically Signed On 12-31-2024 11:21:33 CDT by Nona Haynes Please click the below link to view image of tracing.
[2024-12-31 06:47] LABS: CREATININE 1.5 mg/dL (0.5-1.0); GLOMERULAR FILTR. RATE CALC 40.0 mL/min (>90); GLUCOSE,RANDOM 104.0 mg/dL (70-105); PHOSPHORUS 3.3 mg/dL (2.5-4.9); SODIUM SERUM 143.0 mmol/L (136-145); UREA NITROGEN, BLOOD 25.0 mg/dL (7-18)
[2024-12-31] MEDS ORDERED: NON-FORMULARY MEDICATION 1 EACH (Albuterol Sulfate (Ventolin Hfa) 2 PUFF) IH PRN (12:00)
[2024-12-31] MEDS ORDERED: HYDROcodone/APAP 5/325 1 TAB TABLET PO PRN (12:00)
[2024-12-31] MEDS ORDERED: LOPERAMIDE HCL 2 MG CAP PO SCH (12:00)
[2024-12-31] MEDS ORDERED: PROCHLORPERAZINE MALEATE 10 MG PO PRN (12:30)
[2024-12-31 12:32] LABS: INR 0.98 (0.85-1.15)
--- NOTE | 2024-12-31 14:03 | HMCIMG ---
EXAM: CT Chest Without Intravenous Contrast. CLINICAL HISTORY: TECHNIQUE: Axial computed tomography images of the chest without intravenous contrast. Dose reduction technique was used including one or more of the following: automated exposure control, adjustment of mA and kV according to patient size, and/or iterative reconstruction. CONTRAST: NONE COMPARISON: X-ray chest 12/30/2024, similar to prior. FINDINGS: LUNGS: No pulmonary mass. No focal airspace consolidation. PLEURAL SPACES: No pleural effusion. No pneumothorax. HEART AND MEDIASTINUM: No cardiomegaly. No significant pericardial effusion. LYMPH NODES: No lymphadenopathy. CHEST WALL AND UPPER ABDOMEN: Bilateral breast implants are seen. The upper abdominal solid organs are unremarkable. BONES: Mild degenerative changes in thoracic spine. No acute osseous abnormality. IMPRESSION: 1. No acute intra-thoracic abnormality. /[place]
--- NOTE | 2024-12-31 15:00 | NUR ---
SPEECH TRIGGER COMPLETED / [facility] Pt IS A 59 Y.O. FEMALE ADMITTED SECONDARY TO [facility] AND [facility]. Pt HAS A PAST MEDICAL HISTORY SIGNIFICANT FOR DM TYPE 2; HTN, BREAST CA, HYPERLIPIDEMIA; AND ASTHMA. PATIENT PRESENTED WITH HAZY OPACITIES IN THE LEFT LUNG BASE ON MOST RECENT CHEST X-RAY (12/30/2024). Pt CURRENTLY ON CONSISTENT CARB DIET (REGULAR TEXTURE AND THIN LIQUIDS). PER NURSE SHERMAN, Pt TOLERATING DIET WITH NO OVERT S/S OF ASPIRATION. PLEASE REQUEST SPEECH THERAPY SERVICES FOR SKILLED BEDSIDE SWALLOW EVALUATION IF Pt PRESENTS WITH +S/S OF ASPIRATION SUCH COUGH RESPONSE, THROAT CLEAR, OR WET VOCAL QUALITY DURING ORAL INTAKE. ALL QUESTIONS ANSWERED AT THIS TIME. Addendum: 01/01/[address] TERRI GOSS Amended: Links added.
--- NOTE | 2024-12-31 15:56 | CONS ---
NEPHROLOGY CONSULTATION NOTE Date/Time Patient Seen: Dec 31, 2024 1320 HISTORY OF PRESENT ILLNESS: This is a 59-year-old female with a past medical history of diabetes mellitus type 2, hypertension, breast cancer, hyperlipidemia, asthma, DVT with right lower extremity filter in place on chronic anticoagulation. She presented to the emergency room with complaints of lower extremity edema. Imaging studies were noted She was noted to have elevated BUN/creatinine We are consulted for renal failure Renal function remains elevated Electrolytes are stable. She was seen in the medical floor, in no acute distress No family at the bedside Prognosis remains guarded REVIEW OF SYSTEMS: GENERAL: Negative for any nausea, vomiting, fevers, chills, or weight loss. NEUROLOGIC: Negative for any blurry vision, blind spots, double vision, facial asymmetry, dysphagia, dysarthria, hemiparesis, hemisensory deficits, vertigo, ataxia. HEENT: Negative for any head trauma, neck trauma, neck stiffness, photophobia, phonophobia, sinusitis, rhinitis. CARDIAC: Negative for any chest pain, dyspnea on exertion, paroxysmal nocturnal dyspnea, peripheral edema. PULMONARY: Negative for any shortness of breath, wheezing, COPD, or TB exposure. GASTROINTESTINAL: Negative for any abdominal pain, nausea, vomiting, bright red blood per rectum, melena. GENITOURINARY: Negative for any dysuria, hematuria, incontinence. INTEGUMENTARY: Negative for any rashes, cuts, insect bites. RHEUMATOLOGIC: Negative for any joint pains, photosensitive rashes, history of vasculitis or kidney problems. HEMATOLOGIC: Negative for any abnormal bruising, frequent infections or bleeding. PAST MEDICAL HISTORY: Diabetes mellitus type2, hypertension, breast CA getting treatment at [facility] with Dr. Torres, hyperlipidemia, asthma, DVT with right lower extremity filter in place, on chronic anticoagulation PAST SURGICAL HISTORY: Right lower extremity DVT filter, lumpectomy, bilateral mastectomy with placement of expanders pending reconstructive breast surgery PAST SOCIAL HISTORY: Denies use of alcohol, tobacco or illicit drugs FAMILY HISTORY: Noncontributory PHYSICAL EXAM: GENERAL: Alert and oriented x 3. No acute distress. Well-nourished. EYES: EOMI. Anicteric. HENT: Moist mucous membranes. No scleral icterus. No cervical lymphadenopathy. LUNGS: Clear to auscultation bilaterally. No accessory muscle use. CARDIOVASCULAR: Regular rate and rhythm. No murmur. No JVD. ABDOMEN: Soft, non-tender and non-distended. No palpable masses. EXTREMITIES: No edema. Non-tender. Skin: No rashes or lesions. Warm. NEUROLOGIC: No focal neurological deficits. CN II-XII grossly intact, but not individually tested. PSYCHIATRIC: Cooperative. Appropriate mood and affect. MEDICATIONS: [ ] Current Medications Medications (Trade) Dose Ordered Sig/Queta Route PRN Reason Start Time Stop Time Status Last Admin Dose Admin Acetaminophen (TYLenol 325MG TAB) 650 mg Q6H PRN PO TEMPERATURE GREATER THAN 101.5 12/30/24 22:00 01/29/25 21:59 Acetaminophen/ Hydrocodone Bitart (NORco 5/325MG) 1 tab TIDP PRN PO PAIN LEVEL 4 TO 6 12/31/24 12:00 01/05/25 11:59 Albuterol (DUOneb) 1 UDVIAL [id number] IH 12/31/24 00:00 01/30/25 00:00 12/31/24 11:00 1 UDVIAL Albuterol Sulfate (Proventil 0.083% 2.5mg/3ml) 2.5 mg [id number] IH 12/31/24 06:00 01/30/25 05:59 Amlodipine Besylate (NorvASC 5MG TAB) 5 mg HS PO 12/31/24 21:00 01/30/25 20:59 Apixaban (EliquIS) 5 mg BID PO 12/31/24 09:00 01/30/25 08:59 12/31/24 08:23 5 MG Atorvastatin Calcium (LIPItor 40MG) 40 mg HS PO 12/31/24 21:00 01/30/25 20:59 Ceftriaxone Sodium (ROCEphine 1G INJ) 1 gm Q24H IV 12/30/24 22:00 01/09/25 21:59 12/30/24 22:35 1 GM Doxycycline Hyclate 250 ml @ 125 mls/hr Q12H IV 12/30/24 22:00 01/09/25 21:59 12/31/24 08:23 125 MLS/HR EZETIMIBE (Zetia) 10 mg HS PO 12/31/24 21:00 01/30/25 20:59 Guaifenesin (RobiTUSSin SUGAR-FREE 100 MG/ 5 ML UDCUP) 400 mg Q4H PRN PO cough 12/30/24 22:00 01/29/25 21:59 Heparin Sodium (Porcine) (HEParin 5,000 UNIT VIAL) 5,000 unit BID SQ 12/31/24 09:00 12/31/24 00:21 DC Home Med (Home Medication) 1 each BID PO 12/31/24 21:00 01/30/25 20:59 Home Med (Home Medication) 1 each DAILY PO 01/01/25 09:00 01/31/25 08:59 Home Med (Home Medication) 1 each Q6H PRN PO NAUSEA 12/31/24 12:30 01/30/25 12:29 Home Med (Home Medication) Alpha Lipoic Acid ... BID PO 12/31/24 21:00 01/30/25 20:59 Hydralazine HCl (APRESOLine 20MG INJ) 10 mg Q6H PRN IV For:SBP above 160;DBP above 90 12/30/24 22:00 01/29/25 21:59 Insulin Human Regular (humuLIN R 100 UNIT/ML 3ML) INSULIN SLIDING SCAL... ACHS SQ 12/31/24 07:30 01/30/25 07:29 Ketoconazole (niZORal) 1 appl DAILY PRN TP ITCHING 12/31/24 12:00 01/30/25 11:59 Lactated Ringer's 1,000 ml @ 75 mls/hr [id number] IV 12/30/24 22:00 01/29/25 21:59 12/30/24 22:34 75 MLS/HR Latanoprost (Xalatan) 1 drop HS OP 12/31/24 21:00 01/30/25 20:59 Lisinopril (Prinivil 40mg) 40 mg DAILY PO 01/01/25 09:00 01/31/25 08:59 Loperamide HCl (Imodium) 2 mg AD PO 12/31/24 12:00 01/30/25 11:59 Miscellaneous Medication (Albuterol Sulfate (Ventolin Hfa)) 2 puff Q4HPRN PRN IH wheezing 12/31/24 12:00 12/31/24 12:23 DC Morphine Sulfate (morPHINE 2MG SYG) 2 mg Q4H PRN IVP SEVERE PAIN (7-10) 12/30/24 22:00 01/06/25 21:59 Ondansetron HCl (zoFRAN 4MG INJ) 4 mg Q6H PRN IV NAUSEA/VOMITING 12/30/24 22:00 01/29/25 21:59 Pantoprazole Sodium (PROTonix 40MG TAB) 40 mg DAILY PO 12/31/24 09:00 01/30/25 08:59 12/31/24 08:23 40 MG Tramadol HCl (UltRAM) 50 mg Q6H PRN PO PAIN LEVEL 7 TO 10 12/31/24 12:00 01/05/25 11:59 Vital Signs (last 8hr) Date Time Temp Pulse Resp B/P (MAP) Pulse Ox O2 Delivery O2 Flow Rate FiO2 12/31/24 11:53 98.1 72 18 123/79 98 Room Air 21 12/31/24 11:00 71 20 12/31/24 08:00 96 Room Air* 0 21 DIAGNOSTICS / RADIOLOGY: [ Copy/paste Image report here. If no images then delete ] LABORATORY: [ ] Hematology Labs: Test 12/31/24 06:03 12/30/24 19:45 Range/Units White Blood Count 5.1 4.8-10.8 K/uL Red Blood Count 3.36 L 4.00-5.50 MIL/uL Hemoglobin 10.3 L 12.0-16.0 g/dL Hematocrit 32.1 L 36-48 % Mean Corpuscular Volume 95.5 79-99 fL Mean Corpuscular Hemoglobin 30.7 27.0-33.0 pg Mean Corpuscular Hemoglobin Concent 32.1 32.0-36.0 g/dL Red Cell Distribution Width 19.1 H 11.0-15.5 % Platelet Count 184 130-400 K/uL Mean Platelet Volume 10.9 H 7.5-10.5 fL Immature Granulocyte % (Auto) 0.8 0-1 % Neutrophils (%) (Auto) 64.3 40.0-77.0 % Lymphocytes (%) (Auto) 28.8 21.0-51.0 % Monocytes (%) (Auto) 4.7 3.0-13.0 % Eosinophils (%) (Auto) 0.6 0.0-8.0 % Basophils (%) (Auto) 0.8 0.0-5.0 % Neutrophils # (Auto) 3.3 1.8-7.7 K/uL Lymphocytes # (Auto) 1.5 1.0-4.8 K/uL Monocytes # (Auto) 0.2 0.1-1.0 K/uL Eosinophils # (Auto) 0.03 0.00-0.70 K/uL Basophils # (Auto) 0.04 0.00-0.20 K/uL Absolute Immature Granulocyte (auto 0.04 0-1 K/uL Nucleated Red Blood Cells 0.0 0.0-0.19 % Red Blood Cell Morphology See comments Chemistry Labs: Test 12/31/24 15:40 12/31/24 06:03 12/30/24 22:18 12/30/24 19:45 Range/Units Whole Blood Glucose 93 70-110 MG/DL Sodium Level 143 136-145 mmol/L Potassium Level 3.7 3.5-5.1 mmol/L Chloride Level 108 101-111 mmol/L Carbon Dioxide Level 26 21-32 mmol/L Blood Urea Nitrogen 25 H 7-18 mg/dL Creatinine 1.5 H 0.5-1.0 mg/dL Glomerular Filtration Rate Calc 40 >90 mL/min Random Glucose 104 70-105 mg/dL Total Calcium 8.8 8.5-10.1 mg/dL Phosphorus Level 3.3 2.5-4.9 mg/dL Magnesium Level 1.80 1.80-2.40 mg/dL Lactic Acid Level 1.1 0.8-2.5 mmol/L Hemoglobin A1c 6.5 H 4.0-6.0 % Estimated Average Glucose (eAG) 140 H 70-126 mg/dL Troponin I High Sensitivity 22 4-50 ng/L B-Type Natriuretic Peptide 28 0-100 pg/mL Procalcitonin < 0.05 L 0.05-0.5 ng/mL Coagulation Labs: Test 12/31/24 12:16 Range/Units Prothrombin Time 10.4 9.6-11.6 SEC Prothromb Time International Ratio 0.98 0.85-1.15 ASSESSMENT: Pneumonia, Acute kidney injury Diabetes mellitus type2 Hypertension Breast CA Asthma History of DVT on chronic anticoagulation with Eliquis Hyperlipidemia PLAN: Labs, diagnostic, radiologic exams reviewed and interpreted by myself and supervising physician. We have reviewed external records in detail Obtain complete renal ultrasound Require close monitoring of renal function and electrolytes Order CBC, CMP, uric acid, TSH, complete iron panel, ferritin and electrolytes in am BiPAP as necessary, for respiratory distress Monitor blood pressure adjust medication doses as needed Avoid hypotensive episodes May use Dilaudid 0.5 mg IV every 6 hours as needed for severe pain Monitor blood sugars Strict intake, output, and daily weight should be monitored Please renally adjust medications Avoid nephrotoxic and nonsteroidal drugs Avoid contrast if possible Will continue to monitor renal function, anemia, electrolytes Treatment plan discussed with patient Questions were answered We have discussed with the other team physicians in detail about the care plan We will continue to monitor the patient closely Thank you for allowing us to participate in the care of this patient ATTESTATION BY PHYSICIAN I have seen and examined the patient. I reviewed the documentation, medical decision making, and treatment plan as noted by the mid-level provider above. I agree with the findings and plan of care. MORRIS GAMBINO MD, [facility] Dec 31, 2024 15:56
[2024-12-31 16:13] LABS: NUCLEATED RED BLOOD CELLS 0.0 % (0.0-0.19); PLATELET COUNT (AUTO) 174.0 K/uL (130-400); RED BLOOD CELL COUNT(AUTO) 3.25 MIL/uL (4.00-5.50); RED CELL DISTRIBUTION WIDTH 19.1 % (11.0-15.5); WHITE BLOOD COUNT (AUTO) 6.0 K/uL (4.8-10.8)
--- NOTE | 2024-12-31 16:59 | HMCSR ---
APPROVED REPORT EXAM: Two-dimensional and M-mode echocardiogram with Doppler and color Doppler. INDICATION ICD: Shortness of breath R06.02 2D Dimensions RVDd3.5 cmLVEF(%)54.2 (>50%)LVED Vol(simp.)79.5 mL IVSd1.0 (0.7-1.1cm)FS(%)28 %LVES Vol(simp.)37.5 mL LVDd4.7 (3.8-5.6cm)LA (2D)3.4 (1.6-4.0cm)LVEF(%, simp.)53 % PWd1.2 (0.7-1.1cm)Ao Root(2D)3.2 (2.0-3.7cm)LA ESV INDEX (BP)27.64 mL/m2 LVDs3.4 (2.5-4.0cm)LVOT diam2.1 (1.8-2.4cm) IVC diam1.7 cm Deformation Strain Apical 4-16.6 % Apical 2-14.6 % Apical 3-10.4 % Global Strain-13.9 % M-Mode Dimensions EPSS1.2 cm LA (MM)3.3 (1.6-4.0cm) Ao Root(MM)3.0 (2.0-3.7cm) Aortic Valve AoV Vmax1.5 m/Cha Peak GR8.9 mmHgLVOT Vmax1.1 m/s AoV VTI0.3 mAo Mean GR4.7 mmHgLVOT VTI0.20 m TRISTAN (VMAX)2.39 cm2AVA (VTI) 2.4 cm2 Mitral Valve MV E Vmax65.4 cm/sDECEL Lmpr014 ms MV A Vmax84.0 cm/sP 1/2 T58 ms E/A ratio0.8MVA (PHT)3.8 cm2 TDI E/E' Medial9.2E/E' Lateral9.2 Medial E' Peak V7.10 cm/sLateral E' Peak V7.09 cm/s Pulmonary Valve PV Vmax1.0 m/sPV VTI0.24 mPV Mean GR2.2 mmHg PV Peak GR3.8 mmHg Left Ventricle The left ventricle is normal size. There is normal left ventricular wall thickness. LVEF is 50-55%. C annot rule out small apical thrombus, recommend contrast limited study. The left ventricular diastoli c function is normal. Right Ventricle The right ventricle is normal size. The right ventricular systolic function is normal. Atria The left atrium size is normal. The right atrium size is normal. Aortic Valve The aortic valve is normal in structure. No aortic regurgitation is present. There is no aortic valvu lar stenosis. Mitral Valve The mitral valve is normal in structure. There is no mitral valve regurgitation noted. There is no mi tral valve stenosis. Tricuspid Valve The tricuspid valve is normal in structure. There is no tricuspid valve regurgitation noted. Pulmonic Valve The pulmonary valve is normal in structure. There is no pulmonic valvular regurgitation. Great Vessels The aortic root is normal in size. The IVC is normal in size and collapses >50% with inspiration. Pericardium There is no pericardial effusion. Conclusion The left ventricle is normal size. LVEF is 50-55%. The left ventricular diastolic function is normal. Cannot rule out small apical thrombus, recommend contrast limited study. The right ventricle is normal size. The right ventricular systolic function is normal. The left atrium size is normal. The right atrium size is normal. No valvular pathology. There is no pericardial effusion.
--- NOTE | 2024-12-31 17:13 | PN ---
[facility] PROGRESS NOTE Date of Service: Dec 31, 2024 Time of Service: 17:12 SUBJECTIVE: The patient has been seen and examined at bedside, case discussed with the RN, no acute events overnight, the time of my visit the patient following commands company complaining of mild dry nonproductive cough, no chest pain, shortness shortness for breath, no nausea, no vomiting. BP 123/79, afebrile. Chest x-ray showing hazy opacity of left lung bases maybe due to poor radiographic penetration or layering pleural effusion, no disc consolidation. I have requested a CT of the chest for further evaluation, pulmonary consultation, requested. Follow serology test to include influenza type a and B, rapid strep, SARS antigen, Streptococcus and Legionella antigen. Continue the patient on broad-spectrum IV antibiotics. Follow results of sputum culture. REVIEW OF SYSTEMS CONSTITUTIONAL: Denies fevers, chills, or night sweats. No unintentional weight loss reported. NEUROLOGICAL: Denies headache, amaurosis fugax, motor weakness, sensory deficit, vertigo/spinning sensation, gait abnormalities, or tremors. ENT: No hearing loss, otalgia, otorrhea, rhinitis, rhinorrhea, hoarseness, or sore throat. CARDIOVASCULAR: Denies any exertional angina, dyspnea on exertion, orthopnea, paroxysmal nocturnal dyspnea, palpitations, life-threatening arrhythmias, claudication. PULMONARY: Denies any shortness of breath, cough, phlegm/sputum, hemoptysis, pleuritic chest pain. SLEEP: Denies morning headaches, daytime somnolence or napping. Denies difficulty falling asleep, staying asleep, waking from sleep. Denies knowledge of snoring. GASTROINTESTINAL: Denies any type of dysphagia to either liquids or solids. Denies nausea, vomiting, pyrosis, early satiety, abdominal pain, diarrhea, constipation, or changes in stool consistency or caliber. Denies coffee-ground emesis, hematemesis, hematochezia, or melanotic stools. GENITOURINARY: Denies frequency, urgency, nocturia, hematuria or incontinence (Storage/Irritative symptoms.) Low urinary stream, straining to void, urinary intermittency or hesitancy, splitting of the voiding stream, terminal dribbling. ENDOCRINOLOGIC: Denies polyuria, polydipsia, polyphagia or heat/cold intolerances. HEMATOLOGIC: Denies thrombophilia/previous clots, or coagulopathy/bleeding disorders. ONCOLOGIC: Denies personal history of malignancy. DERMATOLOGIC: Denies rashes or pruritus. PSYCHIATRIC: Denies any suicidal or homicidal ideation. Denies hallucinations. PHYSICAL EXAM GENERAL APPEARANCE: The patient is awake, alert, and oriented, in no acute cardiopulmonary distress. NEUROLOGICAL: Cranial nerves II-XII grossly intact. Motor is 5/5 in bilateral upper and lower extremities proximal to distal. No sensory deficits. HEENT: Face is symmetric. Pupils are equal and reactive. Extraocular movements are intact. NECK: Supple. No JVD. No thyromegaly. No submental, submandibular, pre-/ postauricular, occipital or supraclavicular lymphadenopathy. CHEST: Normal chest expansion. No Telemetry. LUNGS: Absence of any rales, rhonchi or any wheezing. CARDIOVASCULAR: Regular. S1 and S2 normal. No appreciable rubs, murmurs or gallops. ABDOMEN: Soft, nontender, and nondistended. There is no rebound, voluntary guarding, or rigidity. : Deferred. No [place]te. EXTREMITIES: Non-edematous and not cyanotic. No clubbing. Good capillary refill. SKIN: No skin breakdown. Vital Signs (last 8hr) Date Time Temp Pulse Resp B/P (MAP) Pulse Ox O2 Delivery O2 Flow Rate FiO2 12/31/24 16:00 98.2 70 20 162/97 98 Room Air 12/31/24 11:53 98.1 72 18 123/79 98 Room Air 21 12/31/24 11:00 71 20 LABS: Laboratory: Test 12/31/24 16:05 12/31/24 15:40 12/31/24 12:16 12/31/24 06:03 Range/Units White Blood Count 6.0 4.8-10.8 K/uL Red Blood Count 3.25 L 4.00-5.50 MIL/uL Hemoglobin 10.1 L 12.0-16.0 g/dL Hematocrit 30.9 L 36-48 % Mean Corpuscular Volume 95.1 79-99 fL Mean Corpuscular Hemoglobin 31.1 27.0-33.0 pg Mean Corpuscular Hemoglobin Concent 32.7 32.0-36.0 g/dL Red Cell Distribution Width 19.1 H 11.0-15.5 % Platelet Count 174 130-400 K/uL Mean Platelet Volume 10.0 7.5-10.5 fL Nucleated Red Blood Cells 0.0 0.0-0.19 % Whole Blood Glucose 93 70-110 MG/DL Prothrombin Time 10.4 9.6-11.6 SEC Prothromb Time International Ratio 0.98 0.85-1.15 Immature Granulocyte % (Auto) 0.8 0-1 % Neutrophils (%) (Auto) 64.3 40.0-77.0 % Lymphocytes (%) (Auto) 28.8 21.0-51.0 % Monocytes (%) (Auto) 4.7 3.0-13.0 % Eosinophils (%) (Auto) 0.6 0.0-8.0 % Basophils (%) (Auto) 0.8 0.0-5.0 % Neutrophils # (Auto) 3.3 1.8-7.7 K/uL Lymphocytes # (Auto) 1.5 1.0-4.8 K/uL Monocytes # (Auto) 0.2 0.1-1.0 K/uL Eosinophils # (Auto) 0.03 0.00-0.70 K/uL Basophils # (Auto) 0.04 0.00-0.20 K/uL Absolute Immature Granulocyte (auto 0.04 0-1 K/uL Sodium Level 143 136-145 mmol/L Potassium Level 3.7 3.5-5.1 mmol/L Chloride Level 108 101-111 mmol/L Carbon Dioxide Level 26 21-32 mmol/L Blood Urea Nitrogen 25 H 7-18 mg/dL Creatinine 1.5 H 0.5-1.0 mg/dL Glomerular Filtration Rate Calc 40 >90 mL/min Random Glucose 104 70-105 mg/dL Total Calcium 8.8 8.5-10.1 mg/dL Phosphorus Level 3.3 2.5-4.9 mg/dL Magnesium Level 1.80 1.80-2.40 mg/dL Test 12/31/24 03:14 12/30/24 22:18 12/30/24 19:45 Range/Units Urine Color LIGHT-YELLOW YELLOW Urine Appearance CLEAR CLEAR Urine pH 5.0 5.0-8.0 Urine Specific [place] 1.016 1.001-1.031 Urine Protein NEGATIVE NEGATIVE mg/dL Urine Glucose (UA) NEGATIVE NEGATIVE mg/dL Urine Ketones NEGATIVE NEGATIVE mg/dL Urine Occult Blood SMALL H NEGATIVE Urine Nitrate NEGATIVE NEGATIVE Urine Bilirubin NEGATIVE NEGATIVE mg/dL Urine Urobilinogen 0.2 0.2-1.0 mg/dL Urine Leukocyte Esterase 500 H NEGATIVE Emely/uL Urine RBC 6-10 H 0-1 /HPF Urine WBC 2-5 H 0-1 /HPF Urine Squamous Epithelial Cells FEW 0-2 /HPF Urine Bacteria None None Seen /HPF Urine Osmolality 597 50-1200 mOsm/kg Urine Random Creatinine 66.95 30-135 mg/dL Urine Random Sodium 118 40-220 mmol/l Lactic Acid Level 1.1 0.8-2.5 mmol/L Red Blood Cell Morphology See comments Hemoglobin A1c 6.5 H 4.0-6.0 % Estimated Average Glucose (eAG) 140 H 70-126 mg/dL Troponin I High Sensitivity 22 4-50 ng/L B-Type Natriuretic Peptide 28 0-100 pg/mL Procalcitonin < 0.05 L 0.05-0.5 ng/mL Current Medications Medications (Trade) Dose Ordered Sig/Queta Route PRN Reason Start Time Stop Time Status Last Admin Dose Admin Acetaminophen (TYLenol 325MG TAB) 650 mg Q6H PRN PO TEMPERATURE GREATER THAN 101.5 12/30/24 22:00 01/29/25 21:59 Acetaminophen/ Hydrocodone Bitart (NORco 5/325MG) 1 tab TIDP PRN PO PAIN LEVEL 4 TO 6 12/31/24 12:00 01/05/25 11:59 Albuterol (DUOneb) 1 UDVIAL Q4AMQQH 12/31/24 00:00 01/30/25 00:00 12/31/24 11:00 1 UDVIAL Albuterol Sulfate (Proventil 0.083% 2.5mg/3ml) 2.5 mg [id number] IH 12/31/24 06:00 01/30/25 05:59 Amlodipine Besylate (NorvASC 5MG TAB) 5 mg HS PO 12/31/24 21:00 01/30/25 20:59 Apixaban (EliquIS) 5 mg BID PO 12/31/24 09:00 01/30/25 08:59 12/31/24 08:23 5 MG Atorvastatin Calcium (LIPItor 40MG) 40 mg HS PO 12/31/24 21:00 01/30/25 20:59 Ceftriaxone Sodium (ROCEphine 1G INJ) 1 gm Q24H IV 12/30/24 22:00 01/09/25 21:59 12/30/24 22:35 1 GM Doxycycline Hyclate 250 ml @ 125 mls/hr Q12H IV 12/30/24 22:00 01/09/25 21:59 12/31/24 08:23 125 MLS/HR EZETIMIBE (Zetia) 10 mg HS PO 12/31/24 21:00 01/30/25 20:59 Guaifenesin (RobiTUSSin SUGAR-FREE 100 MG/ 5 ML UDCUP) 400 mg Q4H PRN PO cough 12/30/24 22:00 01/29/25 21:59 Heparin Sodium (Porcine) (HEParin 5,000 UNIT VIAL) 5,000 unit BID SQ 12/31/24 09:00 12/31/24 00:21 DC Home Med (Home Medication) 1 each BID PO 12/31/24 21:00 01/30/25 20:59 Home Med (Home Medication) 1 each DAILY PO 01/01/25 09:00 01/31/25 08:59 Home Med (Home Medication) 1 each Q6H PRN PO NAUSEA 12/31/24 12:30 01/30/25 12:29 Home Med (Home Medication) Alpha Lipoic Acid ... BID PO 12/31/24 21:00 01/30/25 20:59 Hydralazine HCl (APRESOLine 20MG INJ) 10 mg Q6H PRN IV For:SBP above 160;DBP above 90 12/30/24 22:00 01/29/25 21:59 Insulin Human Regular (humuLIN R 100 UNIT/ML 3ML) INSULIN SLIDING SCAL... ACHS SQ 12/31/24 07:30 01/30/25 07:29 Ketoconazole (niZORal) 1 appl DAILY PRN TP ITCHING 12/31/24 12:00 01/30/25 11:59 Lactated Ringer's 1,000 ml @ 75 mls/hr [id number] IV 12/30/24 22:00 01/29/25 21:59 12/30/24 22:34 75 MLS/HR Latanoprost (Xalatan) 1 drop HS OP 12/31/24 21:00 01/30/25 20:59 Lisinopril (Prinivil 40mg) 40 mg DAILY PO 01/01/25 09:00 01/31/25 08:59 Loperamide HCl (Imodium) 2 mg AD PO 12/31/24 12:00 01/30/25 11:59 Miscellaneous Medication (Albuterol Sulfate (Ventolin Hfa)) 2 puff Q4HPRN PRN IH wheezing 12/31/24 12:00 12/31/24 12:23 DC Morphine Sulfate (morPHINE 2MG SYG) 2 mg Q4H PRN IVP SEVERE PAIN (7-10) 12/30/24 22:00 01/06/25 21:59 Ondansetron HCl (zoFRAN 4MG INJ) 4 mg Q6H PRN IV NAUSEA/VOMITING 12/30/24 22:00 01/29/25 21:59 Pantoprazole Sodium (PROTonix 40MG TAB) 40 mg DAILY PO 12/31/24 09:00 01/30/25 08:59 12/31/24 08:23 40 MG Tramadol HCl (UltRAM) 50 mg Q6H PRN PO PAIN LEVEL 7 TO 10 12/31/24 12:00 01/05/25 11:59 DIAGNOSTICS / RADIOLOGY: [ ] ASSESSMENT: Pneumonia, POA Acute kidney injury, POA Diabetes mellitius type2 Hypertension Breast CA Asthma History of DVT on chronic anticoagulation with Eliquis Hyperlipidemia PLAN: The patient has been seen and examined at bedside, case discussed with the RN, no acute events overnight, the time of my visit the patient following commands company complaining of mild dry nonproductive cough, no chest pain, shortness shortness for breath, no nausea, no vomiting. BP 123/79, afebrile. Chest x-ray showing hazy opacity of left lung bases maybe due to poor radiographic penetration or layering pleural effusion, no disc consolidation. I have requested a CT of the chest for further evaluation, pulmonary consultation, requested. Follow serology test to include influenza type a and B, rapid strep, SARS antigen, Streptococcus and Legionella antigen. Continue the patient on broad-spectrum IV antibiotics. Follow results of sputum culture. NEURO: Minimize central acting medications as possible. Fall Precautions. Well lighted room through the day and minimize interruptions through the night to prevent acute delirium. PULMONARY: Supplemental 02 as needed BiPAP as necessary, for respiratory distress Titrate Fio2 to keep Spo2 > or = 90% DuoNebs and CPT as needed IS hourly while awake for pulmonary hygiene prn Out of bed to chair as tolerated Maintain aspiration precautions at all times CARDIOVASCULAR: Follow hemodynamics. Vital signs per facility protocol GI & NUTRITION: Continue nutritional support Aspirations precautions Prokinetic agents and laxatives as needed KIDNEYS & ELECTROLYTES: Strict monitoring of intake and output Daily weights Avoid nephrotoxic agents Monitor electrolytes and replace as needed Goal urine output of 30mL/hr or 0.5mL/kg/hr Medications to be dosed according to renal function. Avoid contrast if possible ENDOCRINE: Maintain blood glucose between 100-180 at all times. Insulin sliding scale for blood glucose management Hypoglycemia and hyperglycemia protocol in place INFECTIOUS DISEASE: Trend temperature, WBC and procalcitonin level Follow cultures, deescalate antibiotics as soon as possible. Panculture if new onset fever HEMATOLOGY & COAGULATION: Monitor H&H. Keep Hgb > 7 Transfuse 1 unit of PRBC for Hgb < 7 Transfuse 1 pack of platelets of platelets < 20, 000 Watch for any signs and symptoms of bleeding SKIN: Pressure ulcer prevention per facility protocol Specialty mattress as needed ORTHO/REHAB Continue PT/OT PRN: MEDICATIONS Tylenol 650 mg po every 4 hrs for fever zofran 4 mg IV every 6 hrs for n/v Hydralazine 5 mg IV every 4 hrs systolic pressure > 160 bowel regiment: lactulose 20 gm PO BID PRN constipation Supportive measures: Continue GI and DVT prophylaxis Disposition: Pending Improvement in clinical condition All questions answered time spent: > 35 min KINJAL HERRMANN MD Dec 31, 2024 17:13
[2024-12-31 17:37] LABS: COVID19 (SARS ANTIGEN RAPID) PRESUMPTIVE NEGATIVE (NEGATIVE); INFLUENZA TYPE A Negative For Type A (NEGATIVE); INFLUENZA TYPE B Negative For Type B (NEGATIVE)
[2024-12-31] MEDS: LATANOPROST 2.5 ML DROPS OP SCH (20:52)
[2024-12-31] MEDS: EZETIMIBE 10 MG TAB PO SCH (20:53)
[2024-12-31] MEDS: amLODIPine 5 MG TAB PO SCH (20:53)
[2024-12-31] MEDS: ALPHA LIPOIC ACID 600 MG PO SCH (21:00)
[2024-12-31] MEDS: PREGABALIN 150 MG PO SCH (21:00)
[2025-01-01] VITALS (9 sets, daily range): BP systolic 127–152; BP diastolic 4–95; PULSE 73–90; RESP 18–20; TEMP 97.9–98.4; O2SAT 96–99
[2025-01-01 05:47] LABS: NUCLEATED RED BLOOD CELLS 0.0 % (0.0-0.19); PLATELET COUNT (AUTO) 158.0 K/uL (130-400); RED BLOOD CELL COUNT(AUTO) 2.99 MIL/uL (4.00-5.50); RED CELL DISTRIBUTION WIDTH 19.2 % (11.0-15.5); WHITE BLOOD COUNT (AUTO) 5.0 K/uL (4.8-10.8)
[2025-01-01 06:14] LABS: ASPARTATE AMINOTRANSFERASE 19.0 U/L (10-37); CREATININE 1.3 mg/dL (0.5-1.0); GLOMERULAR FILTR. RATE CALC 48.0 mL/min (>90); GLUCOSE,RANDOM 102.0 mg/dL (70-105); SODIUM SERUM 144.0 mmol/L (136-145); TOTAL PROTEIN, SERUM 5.9 g/dL (6.0-8.3); UREA NITROGEN, BLOOD 21.0 mg/dL (7-18)
[2025-01-01] MEDS: LETROZOLE 2.5 MG PO SCH (09:00)
[2025-01-01] MEDS: LISINOPRIL 40 MG TABLET PO SCH (09:44)
--- NOTE | 2025-01-01 09:51 | NUR ---
DCP: HOME Sw met with pt with hx of Breast CA with mets to lymph nodes. Pt goes to [facility] for cancer cancer, is on SSD and will start Medicare in August 2025. Sw provided information on Breast Cancer Medicaid, gave information [facility] [place], for assist with applying, also gave info on [employer] who assist with funds to women with cancer. Pt living with her son and Daughter in law. Pt states she can complete her Adls slowly, when she needs help daughter in law helps. Pt keeps her room and bathroom clean, DIL help with home management, cooking and laundry. Pt has walker she uses outside the home, has a walkin shower and built in bench. No HH or HD. PCP is Dayanara Diaz and she uses [facility]s. [facility] Addendum: 01/01/25 at 1001 by PHILIP TUBBS SS Amended: Links added.
[2025-01-01] MEDS ORDERED: DOXY-466 PO (12:01)
[2025-01-01] MEDS ORDERED: CEFD300C3 PO (12:01)
--- NOTE | 2025-01-01 13:01 | CONS ---
[facility] CARDIOLOGY CONSULTATION REPORT Cardiology consultation note dictated for Brandi Hill MD Date Patient Seen: Jan 01, 2025 Requesting Physician: Albert De La Rosa MD Reason for Consultation: Possible apical thrombus History of Present Illness: This is a 59-year-old female with a past medical history of hypertension, hyperlipidemia, diabetes mellitus type 2, history of pulmonary embolism, history of right lower extremity DVT with IVC filter placement and removal, on chronic anticoagulation with Eliquis, breast cancer with chemo and radiation therapy, bilateral mastectomy, pituitary adenoma, chronic dyspnea with exertion after COVID infection, and asthma who presented to the ED for further evaluation of bilateral lower extremity edema that had progressed over the last 2 weeks. Bilateral lower extremity venous Doppler on 12/30/2024 was negative for DVT. Chest x-ray on 12/30/2024 demonstrated hazy opacities in the left lung base with CT of the chest on 12/31/2024 without acute findings. Cardiology has been consulted for abnormal echocardiogram results. 2D echocardiogram on 12/31/2024 demonstrated an LVEF of 50-55%, normal diastolic function, no valvular pathology and a possible small apical thrombus. The patient reported she stopped Eliquis from 12/08 through 12/12 with resumption on 12/13 in preparation for steroid injections to her back and hip. She has since been compliant with Eliquis except the day of admission 12/30 when her PM dose was not resumed. She is pending a cardiology consultation at [facility] for cardiac clearance in preparation for breast reconstruction surgery. Past Medical History: As per HPI and summarized below Past Surgical History: Bilateral mastectomy Hysterectomy Lymph node removal under the left arm Left chest hematoma excision Family History: Refer to chart Social History: The patient lives with family. Habits: The patient denies alcohol, tobacco, or illicit drug use. Home Meds: Current Meds: Medications Dose Ordered Sig/Queta Start Time Stop Time Status Last Admin Doxycycline Hyclate 250 ml @ 125 mls/hr Q12H 12/30/24 22:00 01/09/25 21:59 01/01/25 09:44 Acetaminophen 650 mg Q6H PRN 12/30/24 22:00 01/29/25 21:59 Ceftriaxone Sodium 1 gm Q24H 12/30/24 22:00 01/09/25 21:59 12/31/24 21:00 Albuterol 1 UDVIAL [id number] 12/31/24 00:00 01/30/25 00:00 01/01/25 07:11 Guaifenesin 400 mg Q4H PRN 12/30/24 22:00 01/29/25 21:59 Hydralazine HCl 10 mg Q6H PRN 12/30/24 22:00 01/29/25 21:59 Lactated Ringer's 1,000 ml @ 75 mls/hr [id number] 12/30/24 22:00 01/29/25 21:59 01/01/25 06:46 Morphine Sulfate 2 mg Q4H PRN 12/30/24 22:00 01/06/25 21:59 Ondansetron HCl 4 mg Q6H PRN 12/30/24 22:00 01/29/25 21:59 Pantoprazole Sodium 40 mg DAILY 12/31/24 09:00 01/30/25 08:59 01/01/25 09:44 Insulin Human Regular INSULIN SLIDING SCAL... ACHS 12/31/24 07:30 01/30/25 07:29 Atorvastatin Calcium 40 mg HS 12/31/24 21:00 01/30/25 20:59 Albuterol Sulfate 2.5 mg [id number] 12/31/24 06:00 01/30/25 05:59 Apixaban 5 mg BID 12/31/24 09:00 01/30/25 08:59 01/01/25 09:44 Amlodipine Besylate 5 mg HS 12/31/24 21:00 01/30/25 20:59 12/31/24 20:53 EZETIMIBE 10 mg HS 12/31/24 21:00 01/30/25 20:59 12/31/24 20:53 Acetaminophen/ Hydrocodone Bitart 1 tab TIDP PRN 12/31/24 12:00 01/05/25 11:59 Ketoconazole 1 appl DAILY PRN 12/31/24 12:00 01/30/25 11:59 Lisinopril 40 mg DAILY 01/01/25 09:00 01/31/25 08:59 01/01/25 09:44 Loperamide HCl 2 mg AD 12/31/24 12:00 01/30/25 11:59 Tramadol HCl 50 mg Q6H PRN 12/31/24 12:00 01/05/25 11:59 Home Med Alpha Lipoic Acid ... BID 12/31/24 21:00 01/30/25 20:59 Home Med 1 each DAILY 01/01/25 09:00 01/31/25 08:59 Home Med 1 each BID 12/31/24 21:00 01/30/25 20:59 Home Med 1 each Q6H PRN 12/31/24 12:30 01/30/25 12:29 Latanoprost 1 DROP HS 01/01/25 21:00 01/30/25 20:59 Benzocaine 1 each Q4H PRN 01/01/25 11:30 01/31/25 11:29 Review of Systems: CONST: No fever, fatigue, or weight changes. EYES: No recent vision problems. ENT: No congestion, ear pain, or sore throat. C/V: No chest pain, palpitations, or edema. RESP: No cough, congestion, wheezing or shortness of breath. GI: No abdominal pain, nausea, vomiting, constipation, or diarrhea. : No incontinence or dysuria. SKIN: No rash. NEURO: No headache, focal numbness or weakness, dizziness, or seizures. PSYCH: No depression or anxiety. HEME: No abnormal bruising or bleeding. LYMPH: No swollen glands. Physical Examination: GENERAL: No acute distress. HEAD: Normal with no signs of head trauma. EYES: PERRLA, EOMI, conjunctiva and sclera normal. ENT: Hearing grossly intact, normal oropharynx. NECK: Supple without JVD. There is no tenderness, lymphadenopathy, or masses. No thyromegaly. Normal carotid upstrokes without bruits. LUNGS: Clear breath sounds bilaterally. No wheezes, or rhonchi. HEART: Normal rate and rhythm. Normal S1 and S2 without murmurs, gallop or rub. VASC: Peripheral pulses +2 bilaterally. ABD: Bowel sounds normal, soft, nontender, no masses, no organomegaly. No audible bruits. : Not examined LYMPH: No lymphadenopathy noted. EXT: No clubbing or cyanosis. BLE with trace to 1+ edema. SKIN: No rashes or lesions noted. NEURO: Awake, alert, and oriented x3. No focal sensory or strength deficits noted. Vital Signs (last 8hr) Date Time Temp Pulse Resp B/P (MAP) Pulse Ox O2 Delivery O2 Flow Rate FiO2 01/01/25 12:00 98.2 85 18 148/93 96 Room Air 21 01/01/25 08:12 96 Room Air* 0 21 01/01/25 08:00 97.9 89 18 134/95 96 Room Air 01/01/25 07:13 78 18 N/A Room Air 01/01/25 07:13 77 18 Laboratory: Hematology Labs: Test 01/01/25 05:29 12/31/24 06:03 12/30/24 19:45 Range/Units White Blood Count 5.0 4.8-10.8 K/uL Red Blood Count 2.99 L 4.00-5.50 MIL/uL Hemoglobin 9.3 L 12.0-16.0 g/dL Hematocrit 28.7 L 36-48 % Mean Corpuscular Volume 96.0 79-99 fL Mean Corpuscular Hemoglobin 31.1 27.0-33.0 pg Mean Corpuscular Hemoglobin Concent 32.4 32.0-36.0 g/dL Red Cell Distribution Width 19.2 H 11.0-15.5 % Platelet Count 158 130-400 K/uL Mean Platelet Volume 10.8 H 7.5-10.5 fL Nucleated Red Blood Cells 0.0 0.0-0.19 % Immature Granulocyte % (Auto) 0.8 0-1 % Neutrophils (%) (Auto) 64.3 40.0-77.0 % Lymphocytes (%) (Auto) 28.8 21.0-51.0 % Monocytes (%) (Auto) 4.7 3.0-13.0 % Eosinophils (%) (Auto) 0.6 0.0-8.0 % Basophils (%) (Auto) 0.8 0.0-5.0 % Neutrophils # (Auto) 3.3 1.8-7.7 K/uL Lymphocytes # (Auto) 1.5 1.0-4.8 K/uL Monocytes # (Auto) 0.2 0.1-1.0 K/uL Eosinophils # (Auto) 0.03 0.00-0.70 K/uL Basophils # (Auto) 0.04 0.00-0.20 K/uL Absolute Immature Granulocyte (auto 0.04 0-1 K/uL Red Blood Cell Morphology See comments Chemistry Labs: Test 01/01/25 11:45 01/01/25 05:29 12/31/24 06:03 12/30/24 22:18 Range/Units Whole Blood Glucose 121 H 70-110 MG/DL Bedside Glucose Comment Notified Nurse Sodium Level 144 136-145 mmol/L Potassium Level 4.2 3.5-5.1 mmol/L Chloride Level 110 101-111 mmol/L Carbon Dioxide Level 28 21-32 mmol/L Blood Urea Nitrogen 21 H 7-18 mg/dL Creatinine 1.3 H 0.5-1.0 mg/dL Glomerular Filtration Rate Calc 48 >90 mL/min Random Glucose 102 70-105 mg/dL Uric Acid 5.2 2.6-7.2 mg/dL Total Calcium 8.3 L 8.5-10.1 mg/dL Magnesium Level 1.80 1.80-2.40 mg/dL Total Bilirubin 0.1 L 0.2-1.0 mg/dL Aspartate Amino Transf (AST/SGOT) 19 10-37 U/L Alanine Aminotransferase (ALT/SGPT) 26 12-78 U/L Alkaline Phosphatase 58 50-136 U/L Total Protein 5.9 L 6.0-8.3 g/dL Albumin 2.6 L 3.5-5.0 g/dL Phosphorus Level 3.3 2.5-4.9 mg/dL Lactic Acid Level 1.1 0.8-2.5 mmol/L Test 12/30/24 19:45 Range/Units Hemoglobin A1c 6.5 H 4.0-6.0 % Estimated Average Glucose (eAG) 140 H 70-126 mg/dL Troponin I High Sensitivity 22 4-50 ng/L B-Type Natriuretic Peptide 28 0-100 pg/mL Procalcitonin < 0.05 L 0.05-0.5 ng/mL Coagulation Labs: Test 12/31/24 12:16 Range/Units Prothrombin Time 10.4 9.6-11.6 SEC Prothromb Time International Ratio 0.98 0.85-1.15 Diagnostics / Radiology: 2D echocardiogram on 12/31/2024 Conclusion The left ventricle is normal size. LVEF is 50-55%. The left ventricular diastolic function is normal. Cannot rule out small apical thrombus, recommend contrast limited study. The right ventricle is normal size. The right ventricular systolic function is normal. The left atrium size is normal. The right atrium size is normal. No valvular pathology. There is no pericardial effusion. DICTATED BY: CHILO CULVER MD DATE: 12/31/24 1349 Impression and Plan: Possible small apical thrombus BLE edema, DVT ruled out Hypoalbuminemia UTI LVEF of 50-55% via 2D Echo on 12/31/2024 CKD stage IIIA Hypertension Hyperlipidemia Type 2 diabetes mellitus History of PE History of RLE DVT with IVC filter placement and removal On chronic anticoagulation with Eliquis Breast cancer with chemo and radiation therapy s/p bilateral mastectomy Pituitary adenoma Chronic dyspnea with exertion after COVID infection Asthma Possible small apical thrombus via 2D echocardiogram on 12/31/2024 The patient reported she stopped Eliquis from 12/08 through 12/12 with resumption on 12/13 in preparation for steroid injections to her back and hip. She has since been compliant with Eliquis except the day of admission 12/30 when her PM dose was not resumed. -Continue Eliquis 5 mg b.i.d. -Obtain a limited 2D echocardiogram with Definity contrast to evaluate for apical thrombus RYAN VILLARREAL Jan 01, 2025 13:01 BRANDI HILL MD Jan 02, 2025 19:37
--- NOTE | 2025-01-01 13:16 | PN ---
NEPHROLOGY PROGRESS NOTE Date/Time Patient Seen: Jan 01, 2025 SUBJECTIVE: This is a 59-year-old female with a past medical history of diabetes mellitus type 2, hypertension, breast cancer, hyperlipidemia, asthma, DVT with right lower extremity filter in place on chronic anticoagulation. She presented to the emergency room with complaints of lower extremity edema. Imaging studies were noted She was noted to have elevated BUN/creatinine We are consulted for renal failure Renal function is improving Electrolytes are stable. She continues to be followed by Cardiology for possible apical thrombus. She was seen in the medical floor, in no acute distress No family at the bedside Prognosis remains guarded REVIEW OF SYSTEMS: GENERAL: Negative for any nausea, vomiting, fevers, chills, or weight loss. NEUROLOGIC: Negative for any blurry vision, blind spots, double vision, facial asymmetry, dysphagia, dysarthria, hemiparesis, hemisensory deficits, vertigo, ataxia. HEENT: Negative for any head trauma, neck trauma, neck stiffness, photophobia, phonophobia, sinusitis, rhinitis. CARDIAC: Negative for any chest pain, dyspnea on exertion, paroxysmal nocturnal dyspnea, peripheral edema. PULMONARY: Negative for any shortness of breath, wheezing, COPD, or TB exposure. GASTROINTESTINAL: Negative for any abdominal pain, nausea, vomiting, bright red blood per rectum, melena. GENITOURINARY: Negative for any dysuria, hematuria, incontinence. INTEGUMENTARY: Negative for any rashes, cuts, insect bites. RHEUMATOLOGIC: Negative for any joint pains, photosensitive rashes, history of vasculitis or kidney problems. HEMATOLOGIC: Negative for any abnormal bruising, frequent infections or bleeding. PHYSICAL EXAM: GENERAL: Alert and oriented x 3. No acute distress. Well-nourished. EYES: EOMI. Anicteric. HENT: Moist mucous membranes. No scleral icterus. No cervical lymphadenopathy. LUNGS: Clear to auscultation bilaterally. No accessory muscle use. CARDIOVASCULAR: Regular rate and rhythm. No murmur. No JVD. ABDOMEN: Soft, non-tender and non-distended. No palpable masses. EXTREMITIES: No edema. Non-tender. Skin: No rashes or lesions. Warm. NEUROLOGIC: No focal neurological deficits. CN II-XII grossly intact, but not individually tested. PSYCHIATRIC: Cooperative. Appropriate mood and affect. LABORATORY: [ ] Hematology Labs: Test 01/01/25 05:29 12/31/24 06:03 12/30/24 19:45 Range/Units White Blood Count 5.0 4.8-10.8 K/uL Red Blood Count 2.99 L 4.00-5.50 MIL/uL Hemoglobin 9.3 L 12.0-16.0 g/dL Hematocrit 28.7 L 36-48 % Mean Corpuscular Volume 96.0 79-99 fL Mean Corpuscular Hemoglobin 31.1 27.0-33.0 pg Mean Corpuscular Hemoglobin Concent 32.4 32.0-36.0 g/dL Red Cell Distribution Width 19.2 H 11.0-15.5 % Platelet Count 158 130-400 K/uL Mean Platelet Volume 10.8 H 7.5-10.5 fL Nucleated Red Blood Cells 0.0 0.0-0.19 % Immature Granulocyte % (Auto) 0.8 0-1 % Neutrophils (%) (Auto) 64.3 40.0-77.0 % Lymphocytes (%) (Auto) 28.8 21.0-51.0 % Monocytes (%) (Auto) 4.7 3.0-13.0 % Eosinophils (%) (Auto) 0.6 0.0-8.0 % Basophils (%) (Auto) 0.8 0.0-5.0 % Neutrophils # (Auto) 3.3 1.8-7.7 K/uL Lymphocytes # (Auto) 1.5 1.0-4.8 K/uL Monocytes # (Auto) 0.2 0.1-1.0 K/uL Eosinophils # (Auto) 0.03 0.00-0.70 K/uL Basophils # (Auto) 0.04 0.00-0.20 K/uL Absolute Immature Granulocyte (auto 0.04 0-1 K/uL Red Blood Cell Morphology See comments Chemistry Labs: Test 01/01/25 11:45 01/01/25 05:29 12/31/24 06:03 12/30/24 22:18 Range/Units Whole Blood Glucose 121 H 70-110 MG/DL Bedside Glucose Comment Notified Nurse Sodium Level 144 136-145 mmol/L Potassium Level 4.2 3.5-5.1 mmol/L Chloride Level 110 101-111 mmol/L Carbon Dioxide Level 28 21-32 mmol/L Blood Urea Nitrogen 21 H 7-18 mg/dL Creatinine 1.3 H 0.5-1.0 mg/dL Glomerular Filtration Rate Calc 48 >90 mL/min Random Glucose 102 70-105 mg/dL Uric Acid 5.2 2.6-7.2 mg/dL Total Calcium 8.3 L 8.5-10.1 mg/dL Magnesium Level 1.80 1.80-2.40 mg/dL Total Bilirubin 0.1 L 0.2-1.0 mg/dL Aspartate Amino Transf (AST/SGOT) 19 10-37 U/L Alanine Aminotransferase (ALT/SGPT) 26 12-78 U/L Alkaline Phosphatase 58 50-136 U/L Total Protein 5.9 L 6.0-8.3 g/dL Albumin 2.6 L 3.5-5.0 g/dL Phosphorus Level 3.3 2.5-4.9 mg/dL Lactic Acid Level 1.1 0.8-2.5 mmol/L Test 12/30/24 19:45 Range/Units Hemoglobin A1c 6.5 H 4.0-6.0 % Estimated Average Glucose (eAG) 140 H 70-126 mg/dL Troponin I High Sensitivity 22 4-50 ng/L B-Type Natriuretic Peptide 28 0-100 pg/mL Procalcitonin < 0.05 L 0.05-0.5 ng/mL Coagulation Labs: Test 12/31/24 12:16 Range/Units Prothrombin Time 10.4 9.6-11.6 SEC Prothromb Time International Ratio 0.98 0.85-1.15 DIAGNOSTICS / RADIOLOGY: [address] [address] [place] [address] IMAGING REPORT Signed PATIENT: YNES SOLORZANO MR#: [id number] : 1965 SEX: F AGE: 59 LOCATION: [facility] ORDER 1200 STATUS: ADM IN [facility] REPORT#: [id number] SERVICE 1158 REASON: sob ORDERING PHYSICIAN: KINJAL HERRMANN MD PROCEDURE: ECHO CMP - ECHO 2-D COMPLETE APPROVED REPORT EXAM: Two-dimensional and M-mode echocardiogram with Doppler and color Doppler. INDICATION ICD: Shortness of breath R06.02 2D Dimensions RVDd 3.5 cm LVEF(%) 54.2 (>50%) LVED Vol(simp.) 79.5 mL IVSd 1.0 (0.7-1.1cm) FS(%) 28 % LVES Vol(simp.) 37.5 mL LVDd 4.7 (3.8-5.6cm) LA (2D) 3.4 (1.6-4.0cm) LVEF(%, simp.) 53 % PWd 1.2 (0.7-1.1cm) Ao Root(2D) 3.2 (2.0-3.7cm) LA ESV INDEX (BP) 27.64 mL/m2 LVDs 3.4 (2.5-4.0cm) LVOT diam 2.1 (1.8-2.4cm) IVC diam 1.7 cm Deformation Strain Apical 4 -16.6 % Apical 2 -14.6 % Apical 3 -10.4 % Global Strain -13.9 % M-Mode Dimensions EPSS 1.2 cm LA (MM) 3.3 (1.6-4.0cm) Ao Root(MM) 3.0 (2.0-3.7cm) Aortic Valve AoV Vmax 1.5 m/s Ao Peak GR 8.9 mmHg LVOT Vmax 1.1 m/s AoV VTI 0.3 m Ao Mean GR 4.7 mmHg LVOT VTI 0.20 m TRISTAN (VMAX) 2.39 cm2 TRISTAN (VTI) 2.4 cm2 Mitral Valve MV E Vmax 65.4 cm/s DECEL Time 183 ms MV A Vmax 84.0 cm/s P 1/2 T 58 ms E/A ratio 0.8 MVA (PHT) 3.8 cm2 TDI E/E' Medial 9.2 E/E' Lateral 9.2 Medial E' Peak V 7.10 cm/s Lateral E' Peak V 7.09 cm/s Pulmonary Valve PV Vmax 1.0 m/s PV VTI 0.24 m PV Mean GR 2.2 mmHg PV Peak GR 3.8 mmHg Left Ventricle The left ventricle is normal size. There is normal left ventricular wall thickness. LVEF is 50-55%. Cannot rule out small apical thrombus, recommend contrast limited study. The left ventricular diastolic function is normal. Right Ventricle The right ventricle is normal size. The right ventricular systolic function is normal. Atria The left atrium size is normal. The right atrium size is normal. Aortic Valve The aortic valve is normal in structure. No aortic regurgitation is present. There is no aortic valvular stenosis. Mitral Valve The mitral valve is normal in structure. There is no mitral valve regurgitation noted. There is no mitral valve stenosis. Tricuspid Valve The tricuspid valve is normal in structure. There is no tricuspid valve regurgitation noted. Pulmonic Valve The pulmonary valve is normal in structure. There is no pulmonic valvular regurgitation. Great Vessels The aortic root is normal in size. The IVC is normal in size and collapses >50% with inspiration. Pericardium There is no pericardial effusion. Conclusion The left ventricle is normal size. LVEF is 50-55%. The left ventricular diastolic function is normal. Cannot rule out small apical thrombus, recommend contrast limited study. The right ventricle is normal size. The right ventricular systolic function is normal. The left atrium size is normal. The right atrium size is normal. No valvular pathology. There is no pericardial effusion. DICTATED BY: CHILO CULVER MD DATE: 12/31/24 1349 ELECTRONICALLY SIGNED BY: CHILO CULVER MD DATE: 12/31/24 165 PATIENT: YNES SOLORZANO MR#: [id number] : 1965 SEX: F AGE: 59 LOCATION: [facility] ORDER 1200 STATUS: ADM IN REPORT#: [id number] SERVICE 1158 REASON: pneumonia ORDERING PHYSICIAN: KINJAL HERRMANN MD PROCEDURE: CHEST WO - CT CHEST W/O CONTRAST EXAM: CT Chest Without Intravenous Contrast. CLINICAL HISTORY: TECHNIQUE: Axial computed tomography images of the chest without intravenous contrast. Dose reduction technique was used including one or more of the following: automated exposure control, adjustment of mA and kV according to patient size, and/or iterative reconstruction. CONTRAST: NONE COMPARISON: X-ray chest 12/30/2024, similar to prior. FINDINGS: LUNGS: No pulmonary mass. No focal airspace consolidation. PLEURAL SPACES: No pleural effusion. No pneumothorax. HEART AND MEDIASTINUM: No cardiomegaly. No significant pericardial effusion. LYMPH NODES: No lymphadenopathy. CHEST WALL AND UPPER ABDOMEN: Bilateral breast implants are seen. The upper abdominal solid organs are unremarkable. BONES: Mild degenerative changes in thoracic spine. No acute osseous abnormality. IMPRESSION: 1. No acute intra-thoracic abnormality. /[place] DICTATED BY: YUMIKO NAJERA MD DATE: 12/31/241501 ELECTRONICALLY SIGNED BY: YUMIKO NAJERA MD DATE: 12/31/241501 PATIENT: YNES SOLORZANO MR#: [id number] : 1965 SEX: F AGE: 59 LOCATION: [facility] ORDER 23 STATUS: REG [facility] REPORT#: [id number] SERVICE 21 REASON: R/O DVT, LE swelling ORDERING PHYSICIAN: INA RAMIREZ PROCEDURE: VENOUS BONITA - US VENOUS DOPPLER BILATERAL CLINICAL INFORMATION Bilateral lower extremity swelling COMPARISON None. TECHNIQUE Mcqueen scale, color flow, and spectral Doppler sonography of the deep venous system of the Bilateral lower extremity FINDINGS RIGHT Common femoral vein: Patent and easily compressible without intraluminal thrombus. Femoral vein: Patent and easily compressible without intraluminal thrombus. Popliteal vein: Patent and easily compressible without intraluminal thrombus. Doppler analysis: Normal venous flow including appropriate response to Valsalva, respiratory variation, and calf augmentation. CALF Posterior tibial vein: Patent and easily compressible without intraluminal thrombus. Peroneal veins: Patent and easily compressible without intraluminal thrombus. LEFT Common femoral vein: Patent and easily compressible without intraluminal thrombus. Femoral vein: Patent and easily compressible without intraluminal thrombus. Popliteal vein: Patent and easily compressible without intraluminal thrombus. Doppler analysis: Normal venous flow including appropriate response to Valsalva, respiratory variation, and calf augmentation. CALF Posterior tibial vein: Patent and easily compressible without intraluminal thrombus. Peroneal veins: Patent and easily compressible without intraluminal thrombus. IMPRESSION No deep venous thrombosis. /[place] DICTATED BY: GURJIT BUCKNER MD DATE: 12/30/242131 ELECTRONICALLY SIGNED BY: GURJIT BUCKNER MD DATE: 12/30/242131 PATIENT: YNES SOLORZANO MR#: [id number] : 1965 SEX: F AGE: 59 LOCATION: [facility] ORDER 23 STATUS: REG [facility] REPORT#: [id number] SERVICE 21 REASON: SOB ORDERING PHYSICIAN: INA RAMIREZ PROCEDURE: CXR1VW - CHEST 1VW CLINICAL INFORMATION Shortness of breath COMPARISON None. TECHNIQUE Frontal view chest. FINDINGS Lines and tubes: None Lungs: Hazy opacities in the left lung base, may be due to poor radiographic penetration or layering pleural effusion. No dense consolidation. Pleura: Unremarkable. No effusion or pneumothorax. Cardiomediastinal Silhouette: Unremarkable. Bones: Normal for age. Soft Tissues: Bilateral breast spacers. IMPRESSION Hazy opacities in the left lung base, may be due to poor radiographic penetration or layering pleural effusion. No dense consolidation. Consider follow-up two-view radiograph. /[place] DICTATED BY: GURJIT BUCKNER MD DATE: 12/30/242102 ELECTRONICALLY SIGNED BY: GURJIT BUCKNER MD DATE: 12/30/242102 ASSESSMENT: Pneumonia, Acute kidney injury Diabetes mellitus type2 Hypertension Breast CA Asthma History of DVT on chronic anticoagulation with Eliquis Hyperlipidemia PLAN: Labs, diagnostic, radiologic exams reviewed and interpreted by myself and supervising physician. We have reviewed external records in detail Follow Cardiology recommendations She may have vitamin-E 400 units p.o. daily for leg cramps Require close monitoring of renal function and electrolytes Order CBC, CMP, and electrolytes in am BiPAP as necessary, for respiratory distress Monitor blood pressure adjust medication doses as needed Avoid hypotensive episodes May use Dilaudid 0.5 mg IV every 6 hours as needed for severe pain Monitor blood sugars Strict intake, output, and daily weight should be monitored Please renally adjust medications Avoid nephrotoxic and nonsteroidal drugs Avoid contrast if possible Will continue to monitor renal function, anemia, electrolytes Treatment plan discussed with patient Questions were answered We have discussed with the other team physicians in detail about the care plan We will continue to monitor the patient closely ATTESTATION BY PHYSICIAN I have seen and examined the patient. I reviewed the documentation, medical decision making, and treatment plan as noted by the mid-level provider above. I agree with the findings and plan of care. MORRIS GAMBINO MD, [facility] Jan 01, 2025 13:16
--- NOTE | 2025-01-01 14:54 | CONS ---
[facility] CONSULTATION NOTE Date Patient Seen: Jan 01, 2025 Time of Visit: 14:48 Supervising Physician: Dr. Krueger PROBLEM LIST: Pneumonia, POA History of long COVID Acute kidney injury, POA Diabetes mellitius type2 Hypertension Breast CA Asthma History of DVT on chronic anticoagulation with Eliquis Hyperlipidemia HPI: Patient is a 51-year-old female with a past medical history significant for long COVID, diabetes, breast cancer currently being treated with [facility] as well as history of DVT on chronic anticoagulation with Eliquis who was admitted for complaint of lower extremity edema that was evaluated at her PCPs office. On admission chest x-ray showed signs of possible infiltrates and infectious process. Pulmonary was consulted for this. I evaluated the patient today, she is currently on room air, respirations are normal and unlabored. Patient is able to hold a conversation without exertional dyspnea being observed. She stated that she had long COVID which resulted in permanent damage to her lungs as well as undergoing radiation therapy for breast cancer which is further exacerbated the issue. Patient does not appear to have pneumonia on evaluation, no expectoration or cough, she has been afebrile with a normal white count. Patient is currently on Rocephin and doxycycline, culture reported day one shows likely normal oral kadeem. From a pulmonary perspective we do recommended this patient is discharged to complete her course of antibiotic therapy as she is currently undergoing chemotherapy. 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 PAST MEDICAL HX: see above PAST SURGICAL HX: noncontributory SOCIAL HISTORY: No tobacco, ETOH, or illicit drug use Coded Allergies: Sulfa (Sulfonamide Antibiotics) (Verified Allergy, Unknown, 07/29/20) REVIEW OF SYSTEMS: 12 point ROS reviewed with patient. Pertinent positives mentioned above. Otherwise negative. PHYSICAL EXAM: GENERAL: alert, weak, awake oriented x 3 HEENT: EOMI, Sclera non icteric, moist mucosa NECK: Supple, no JVD, trachea midline LUNGS: Clear breath sounds bilaterally. No wheezes HEART: Regular rate and rhythm. Normal S1 and S2, without murmurs ABD: Abdomen soft, nontender. Bowel sounds present EXT: No clubbing cyanosis or edema NEURO: Alert and oriented to person, follows commands Vital Signs (last 8hr) Date Time Temp Pulse Resp B/P (MAP) Pulse Ox O2 Delivery O2 Flow Rate FiO2 01/01/25 12:00 98.2 85 18 148/93 96 Room Air 21 01/01/25 08:12 96 Room Air* 0 21 01/01/25 08:00 97.9 89 18 134/95 96 Room Air 01/01/25 07:13 78 18 N/A Room Air 01/01/25 07:13 77 18 LABS: Hematology Labs: Test 01/01/25 05:29 12/31/24 06:03 12/30/24 19:45 Range/Units White Blood Count 5.0 4.8-10.8 K/uL Red Blood Count 2.99 L 4.00-5.50 MIL/uL Hemoglobin 9.3 L 12.0-16.0 g/dL Hematocrit 28.7 L 36-48 % Mean Corpuscular Volume 96.0 79-99 fL Mean Corpuscular Hemoglobin 31.1 27.0-33.0 pg Mean Corpuscular Hemoglobin Concent 32.4 32.0-36.0 g/dL Red Cell Distribution Width 19.2 H 11.0-15.5 % Platelet Count 158 130-400 K/uL Mean Platelet Volume 10.8 H 7.5-10.5 fL Nucleated Red Blood Cells 0.0 0.0-0.19 % Immature Granulocyte % (Auto) 0.8 0-1 % Neutrophils (%) (Auto) 64.3 40.0-77.0 % Lymphocytes (%) (Auto) 28.8 21.0-51.0 % Monocytes (%) (Auto) 4.7 3.0-13.0 % Eosinophils (%) (Auto) 0.6 0.0-8.0 % Basophils (%) (Auto) 0.8 0.0-5.0 % Neutrophils # (Auto) 3.3 1.8-7.7 K/uL Lymphocytes # (Auto) 1.5 1.0-4.8 K/uL Monocytes # (Auto) 0.2 0.1-1.0 K/uL Eosinophils # (Auto) 0.03 0.00-0.70 K/uL Basophils # (Auto) 0.04 0.00-0.20 K/uL Absolute Immature Granulocyte (auto 0.04 0-1 K/uL Red Blood Cell Morphology See comments Chemistry Labs: Test 01/01/25 11:45 01/01/25 05:29 12/31/24 06:03 12/30/24 22:18 Range/Units Whole Blood Glucose 121 H 70-110 MG/DL Bedside Glucose Comment Notified Nurse Sodium Level 144 136-145 mmol/L Potassium Level 4.2 3.5-5.1 mmol/L Chloride Level 110 101-111 mmol/L Carbon Dioxide Level 28 21-32 mmol/L Blood Urea Nitrogen 21 H 7-18 mg/dL Creatinine 1.3 H 0.5-1.0 mg/dL Glomerular Filtration Rate Calc 48 >90 mL/min Random Glucose 102 70-105 mg/dL Uric Acid 5.2 2.6-7.2 mg/dL Total Calcium 8.3 L 8.5-10.1 mg/dL Magnesium Level 1.80 1.80-2.40 mg/dL Total Bilirubin 0.1 L 0.2-1.0 mg/dL Aspartate Amino Transf (AST/SGOT) 19 10-37 U/L Alanine Aminotransferase (ALT/SGPT) 26 12-78 U/L Alkaline Phosphatase 58 50-136 U/L Total Protein 5.9 L 6.0-8.3 g/dL Albumin 2.6 L 3.5-5.0 g/dL Phosphorus Level 3.3 2.5-4.9 mg/dL Lactic Acid Level 1.1 0.8-2.5 mmol/L Test 12/30/24 19:45 Range/Units Hemoglobin A1c 6.5 H 4.0-6.0 % Estimated Average Glucose (eAG) 140 H 70-126 mg/dL Troponin I High Sensitivity 22 4-50 ng/L B-Type Natriuretic Peptide 28 0-100 pg/mL Procalcitonin < 0.05 L 0.05-0.5 ng/mL Coagulation Labs: Test 12/31/24 12:16 Range/Units Prothrombin Time 10.4 9.6-11.6 SEC Prothromb Time International Ratio 0.98 0.85-1.15 DIAGNOSTICS / RADIOLOGY RESULTS: [ ] PLAN NEURO: Minimize central acting medications as possible. Maintain fall precautions, adequate lighting during the day PULMONARY: Supplemental 02 as needed. Maintain aspiration precautions at all times CARDIOVASCULAR: Follow hemodynamics. Vital signs per facility protocol GI & NUTRITION: Continue with nutritional support. Continue stool softeners and laxatives as needed. KIDNEYS & ELECTROLYTES: Strict monitoring of intake, output and overall fluid balance. Avoid nephrotoxic medications to the extent possible. Medications to be dosed according to renal function. Monitor electrolytes and replace as needed ENDOCRINE: Maintain blood glucose between 100-180 at all times. Hypoglycemia protocol in place INFECTIOUS DISEASE: Trend temperature, WBC and procalcitonin level Follow cultures, deescalate antibiotics as soon as possible. Panculture if new onset fever ONCOLOGY/HEMATOLOGY/COAGULATION: Monitor for s/s of bleeding Monitor hemoglobin, coagulation studies as needed SKIN: Pressure ulcer prevention per facility protocol Specialty mattress ORTHO/REHAB: Continue PT/OT Prophylaxis: Continue GI and DVT prophylaxis Code Status: Full Resuscitation Disposition: TBD Other: Total patient care time exceeds 35 minutes excluding all procedures. LETTY LOPES Jan 01, 2025 14:53
[2025-01-01] MEDS ORDERED: PERFLUTREN PROTEIN-A MICROSPHR 0.22 MG/ML VIAL IV ONE (15:30)
[2025-01-01] MEDS: LATANOPROST 2.5 ML DROPS OP SCH (20:20)
[2025-01-02] VITALS (8 sets, daily range): BP systolic 139–164; BP diastolic 87–102; PULSE 66–78; RESP 18–20; TEMP 97.9–98.4; O2SAT 98–99
[2025-01-02 05:13] LABS: NUCLEATED RED BLOOD CELLS 0.4 % (0.0-0.19); PLATELET COUNT (AUTO) 151.0 K/uL (130-400); RED BLOOD CELL COUNT(AUTO) 3.17 MIL/uL (4.00-5.50); RED CELL DISTRIBUTION WIDTH 19.1 % (11.0-15.5); WHITE BLOOD COUNT (AUTO) 5.3 K/uL (4.8-10.8)
[2025-01-02 05:29] LABS: ASPARTATE AMINOTRANSFERASE 19.0 U/L (10-37); CREATININE 1.2 mg/dL (0.5-1.0); GLOMERULAR FILTR. RATE CALC 52.0 mL/min (>90); GLUCOSE,RANDOM 103.0 mg/dL (70-105); SODIUM SERUM 144.0 mmol/L (136-145); TOTAL PROTEIN, SERUM 6.1 g/dL (6.0-8.3); UREA NITROGEN, BLOOD 16.0 mg/dL (7-18)
--- NOTE | 2025-01-02 07:21 | HMCIMG ---
EXAMINATION: ULTRASOUND OF THE RETROPERITONEUM. CLINICAL HISTORY: JAVIER. COMPARISON: None. TECHNIQUE: Real-time grayscale ultrasound images of the kidneys. FINDINGS: The kidneys are normal in caliber, the right kidney measures 10.9 x 4.7 x 4.4 cm and the left kidney measures 12.3 x 5.3 x 6.0 cm in its craniocaudal, AP, and transverse dimensions respectively. There is normal renal cortical thickness, and increased cortical echogenicity. There is no renal calculus or hydronephrosis. There is trace left perinephric fluid. The urinary bladder is normal in caliber and wall thickness (0.3 cm). There are no calculi in the urinary bladder. IMPRESSION: Bilateral renal parenchymal disease.Trace left perinephric fluid. No hydronephrosis. /[place]
[2025-01-02] MEDS: BENZOCAINE/MENTH/CETYLPYRD CL 1 EACH LOZENGE MM PRN (08:19)
--- NOTE | 2025-01-02 13:25 | PN ---
NEPHROLOGY PROGRESS NOTE Date/Time Patient Seen: Jan 02, 2025 SUBJECTIVE: This is a 59-year-old female with a past medical history of diabetes mellitus type 2, hypertension, breast cancer, hyperlipidemia, asthma, DVT with right lower extremity filter in place on chronic anticoagulation. She presented to the emergency room with complaints of lower extremity edema. Imaging studies were noted She was noted to have elevated BUN/creatinine We are consulted for renal failure Renal function is improving Electrolytes are stable. She continues to be followed by Cardiology for possible apical thrombus, pending recommendations She was seen in the medical floor, in no acute distress No family at the bedside Prognosis remains guarded REVIEW OF SYSTEMS: GENERAL: Negative for any nausea, vomiting, fevers, chills, or weight loss. NEUROLOGIC: Negative for any blurry vision, blind spots, double vision, facial asymmetry, dysphagia, dysarthria, hemiparesis, hemisensory deficits, vertigo, ataxia. HEENT: Negative for any head trauma, neck trauma, neck stiffness, photophobia, phonophobia, sinusitis, rhinitis. CARDIAC: Negative for any chest pain, dyspnea on exertion, paroxysmal nocturnal dyspnea, peripheral edema. PULMONARY: Negative for any shortness of breath, wheezing, COPD, or TB exposure. GASTROINTESTINAL: Negative for any abdominal pain, nausea, vomiting, bright red blood per rectum, melena. GENITOURINARY: Negative for any dysuria, hematuria, incontinence. INTEGUMENTARY: Negative for any rashes, cuts, insect bites. RHEUMATOLOGIC: Negative for any joint pains, photosensitive rashes, history of vasculitis or kidney problems. HEMATOLOGIC: Negative for any abnormal bruising, frequent infections or bleeding. Vital Signs (last 8hr) Date Time Temp Pulse Resp B/P (MAP) Pulse Ox O2 Delivery O2 Flow Rate FiO2 01/02/25 11:56 98.4 70 18 160/94 97 Room Air 01/02/25 08:00 98.1 67 18 152/99 98 Room Air 01/02/25 08:00 98 Room Air* 0 21 Current Medications Medications (Trade) Dose Ordered Sig/Queta Route Start Time Stop Time Status Last Admin Dose Admin Albuterol (DUOneb) 1 UDVIAL [id number] IH 12/31/24 00:00 01/02/25 11:22 DC 01/01/25 07:11 1 UDVIAL Albuterol Sulfate (Proventil 0.083% 2.5mg/3ml) 2.5 mg [id number] IH 12/31/24 06:00 01/30/25 05:59 Amlodipine Besylate (NorvASC 5MG TAB) 5 mg HS PO 12/31/24 21:00 01/30/25 20:59 01/01/25 20:18 5 MG Apixaban (EliquIS) 5 mg BID PO 12/31/24 09:00 01/30/25 08:59 01/02/25 08:19 5 MG Atorvastatin Calcium (LIPItor 40MG) 40 mg HS PO 12/31/24 21:00 01/30/25 20:59 01/01/25 20:18 40 MG Ceftriaxone Sodium (ROCEphine 1G INJ) 1 gm Q24H IV 12/30/24 22:00 01/09/25 21:59 01/01/25 20:23 1 GM Doxycycline Hyclate 250 ml @ 125 mls/hr Q12H IV 12/30/24 22:00 01/09/25 21:59 01/02/25 09:29 125 MLS/HR EZETIMIBE (Zetia) 10 mg HS PO 12/31/24 21:00 01/30/25 20:59 01/01/25 20:18 10 MG Heparin Sodium (Porcine) (HEParin 5,000 UNIT VIAL) 5,000 unit BID SQ 12/31/24 09:00 12/31/24 00:21 DC Home Med (Home Medication) 1 each BID PO 12/31/24 21:00 01/30/25 20:59 Home Med (Home Medication) 1 each DAILY PO 01/01/25 09:00 01/31/25 08:59 Home Med (Home Medication) Alpha Lipoic Acid ... BID PO 12/31/24 21:00 01/30/25 20:59 Insulin Human Regular (humuLIN R 100 UNIT/ML 3ML) INSULIN SLIDING SCAL... ACHS SQ 12/31/24 07:30 01/30/25 07:29 Lactated Ringer's 1,000 ml @ 75 mls/hr [id number] IV 12/30/24 22:00 01/29/25 21:59 01/02/25 04:07 75 MLS/HR Latanoprost (Xalatan) 1 DROP HS OP 01/01/25 21:00 01/30/25 20:59 01/01/25 20:20 1 DROP Latanoprost (Xalatan) 1 drop HS OP 12/31/24 21:00 01/01/25 07:06 DC 12/31/24 20:52 1 DROP Lisinopril (Prinivil 40mg) 40 mg DAILY PO 01/01/25 09:00 01/31/25 08:59 01/02/25 08:19 40 MG Loperamide HCl (Imodium) 2 mg AD PO 12/31/24 12:00 01/30/25 11:59 Pantoprazole Sodium (PROTonix 40MG TAB) 40 mg DAILY PO 12/31/24 09:00 01/30/25 08:59 01/02/25 08:19 40 MG PHYSICAL EXAM: GENERAL: Alert and oriented x 3. No acute distress. Well-nourished. EYES: EOMI. Anicteric. HENT: Moist mucous membranes. No scleral icterus. No cervical lymphadenopathy. LUNGS: Clear to auscultation bilaterally. No accessory muscle use. CARDIOVASCULAR: Regular rate and rhythm. No murmur. No JVD. ABDOMEN: Soft, non-tender and non-distended. No palpable masses. EXTREMITIES: No edema. Non-tender. Skin: No rashes or lesions. Warm. NEUROLOGIC: No focal neurological deficits. CN II-XII grossly intact, but not individually tested. PSYCHIATRIC: Cooperative. Appropriate mood and affect. LABORATORY: [ ] Hematology Labs: Test 01/02/25 04:50 Range/Units White Blood Count 5.3 4.8-10.8 K/uL Red Blood Count 3.17 L 4.00-5.50 MIL/uL Hemoglobin 9.8 L 12.0-16.0 g/dL Hematocrit 30.9 L 36-48 % Mean Corpuscular Volume 97.5 79-99 fL Mean Corpuscular Hemoglobin 30.9 27.0-33.0 pg Mean Corpuscular Hemoglobin Concent 31.7 L 32.0-36.0 g/dL Red Cell Distribution Width 19.1 H 11.0-15.5 % Platelet Count 151 130-400 K/uL Mean Platelet Volume 10.4 7.5-10.5 fL Nucleated Red Blood Cells 0.4 H 0.0-0.19 % Chemistry Labs: Test 01/02/25 11:19 01/02/25 04:50 01/01/25 05:29 Range/Units Whole Blood Glucose 78 70-110 MG/DL Bedside Glucose Comment Notified Nurse Sodium Level 144 136-145 mmol/L Potassium Level 3.9 3.5-5.1 mmol/L Chloride Level 110 101-111 mmol/L Carbon Dioxide Level 28 21-32 mmol/L Blood Urea Nitrogen 16 7-18 mg/dL Creatinine 1.2 H 0.5-1.0 mg/dL Glomerular Filtration Rate Calc 52 >90 mL/min Random Glucose 103 70-105 mg/dL Total Calcium 8.7 8.5-10.1 mg/dL Total Bilirubin 0.3 # 0.2-1.0 mg/dL Aspartate Amino Transf (AST/SGOT) 19 10-37 U/L Alanine Aminotransferase (ALT/SGPT) 24 12-78 U/L Alkaline Phosphatase 57 50-136 U/L Total Protein 6.1 6.0-8.3 g/dL Albumin 2.6 L 3.5-5.0 g/dL Uric Acid 5.2 2.6-7.2 mg/dL Magnesium Level 1.80 1.80-2.40 mg/dL DIAGNOSTICS / RADIOLOGY: [address] [address] IMAGING REPORT Signed PATIENT: YNES SOLORZANO MR#: [id number] : 1965 SEX: F AGE: 59 LOCATION: [facility] ORDER 1200 STATUS: ADM IN HOSPITAL REPORT#: [id number] SERVICE 1158 REASON: sob ORDERING PHYSICIAN: KINJAL HERRMANN MD PROCEDURE: ECHO CMP - ECHO 2-D COMPLETE APPROVED REPORT EXAM: Two-dimensional and M-mode echocardiogram with Doppler and color Doppler. INDICATION ICD: Shortness of breath R06.02 2D Dimensions RVDd 3.5 cm LVEF(%) 54.2 (>50%) LVED Vol(simp.) 79.5 mL IVSd 1.0 (0.7-1.1cm) FS(%) 28 % LVES Vol(simp.) 37.5 mL LVDd 4.7 (3.8-5.6cm) LA (2D) 3.4 (1.6-4.0cm) LVEF(%, simp.) 53 % PWd 1.2 (0.7-1.1cm) Ao Root(2D) 3.2 (2.0-3.7cm) LA ESV INDEX (BP) 27.64 mL/m2 LVDs 3.4 (2.5-4.0cm) LVOT diam 2.1 (1.8-2.4cm) IVC diam 1.7 cm Deformation Strain Apical 4 -16.6 % Apical 2 -14.6 % Apical 3 -10.4 % Global Strain -13.9 % M-Mode Dimensions EPSS 1.2 cm LA (MM) 3.3 (1.6-4.0cm) Ao Root(MM) 3.0 (2.0-3.7cm) Aortic Valve AoV Vmax 1.5 m/s Ao Peak GR 8.9 mmHg LVOT Vmax 1.1 m/s AoV VTI 0.3 m Ao Mean GR 4.7 mmHg LVOT VTI 0.20 m TRISTAN (VMAX) 2.39 cm2 TRISTAN (VTI) 2.4 cm2 Mitral Valve MV E Vmax 65.4 cm/s DECEL Time 183 ms MV A Vmax 84.0 cm/s P 1/2 T 58 ms E/A ratio 0.8 MVA (PHT) 3.8 cm2 TDI E/E' Medial 9.2 E/E' Lateral 9.2 Medial E' Peak V 7.10 cm/s Lateral E' Peak V 7.09 cm/s Pulmonary Valve PV Vmax 1.0 m/s PV VTI 0.24 m PV Mean GR 2.2 mmHg PV Peak GR 3.8 mmHg Left Ventricle The left ventricle is normal size. There is normal left ventricular wall thickness. LVEF is 50-55%. Cannot rule out small apical thrombus, recommend contrast limited study. The left ventricular diastolic function is normal. Right Ventricle The right ventricle is normal size. The right ventricular systolic function is normal. Atria The left atrium size is normal. The right atrium size is normal. Aortic Valve The aortic valve is normal in structure. No aortic regurgitation is present. There is no aortic valvular stenosis. Mitral Valve The mitral valve is normal in structure. There is no mitral valve regurgitation noted. There is no mitral valve stenosis. Tricuspid Valve The tricuspid valve is normal in structure. There is no tricuspid valve regu rgitation noted. Pulmonic Valve The pulmonary valve is normal in structure. There is no pulmonic valvular regurgitation. Great Vessels The aortic root is normal in size. The IVC is normal in size and collapses >50% with inspiration. Pericardium There is no pericardial effusion. Conclusion The left ventricle is normal size. LVEF is 50-55%. The left ventricular diastolic function is normal. Cannot rule out small apical thrombus, recommend contrast limited study. The right ventricle is normal size. The right ventricular systolic function is normal. The left atrium size is normal. The right atrium size is normal. No valvular pathology. There is no pericardial effusion. DICTATED BY: CHILO CULVER MD DATE: 12/31/24 1349 ELECTRONICALLY SIGNED BY: CHILO CULVER MD DATE: 12/31/24 165 PATIENT: YNES SOLORZANO MR#: [id number] : 1965 SEX: F AGE: 59 LOCATION: [facility] ORDER 1200 STATUS: ADM IN REPORT#: [id number] SERVICE 1158 REASON: pneumonia ORDERING PHYSICIAN: KINJAL HERRMANN MD PROCEDURE: CHEST WO - CT CHEST W/O CONTRAST EXAM: CT Chest Without Intravenous Contrast. CLINICAL HISTORY: TECHNIQUE: Axial computed tomography images of the chest without intravenous contrast. Dose reduction technique was used including one or more of the following: automated exposure control, adjustment of mA and kV according to patient size, and/or iterative reconstruction. CONTRAST: NONE COMPARISON: X-ray chest 12/30/2024, similar to prior. FINDINGS: LUNGS: No pulmonary mass. No focal airspace consolidation. PLEURAL SPACES: No pleural effusion. No pneumothorax. HEART AND MEDIASTINUM: No cardiomegaly. No significant pericardial effusion. LYMPH NODES: No lymphadenopathy. CHEST WALL AND UPPER ABDOMEN: Bilateral breast implants are seen. The upper abdominal solid organs are unremarkable. BONES: Mild degenerative changes in thoracic spine. No acute osseous abnormality. IMPRESSION: 1. No acute intra-thoracic abnormality. /[place] DICTATED BY: YUMIKO NAJERA MD DATE: 12/31/241501 ELECTRONICALLY SIGNED BY: YUMIKO NAJERA MD DATE: 12/31/241501 PATIENT: YNES SOLORZANO MR#: [id number] : 1965 SEX: F AGE: 59 LOCATION: [facility] ORDER 23 [facility] REPORT#: [id number] SERVICE 21 REASON: R/O DVT, LE swelling ORDERING PHYSICIAN: INA RAMIREZ PROCEDURE: VENOUS BONITA - US VENOUS DOPPLER BILATERAL CLINICAL INFORMATION Bilateral lower extremity swelling COMPARISON None. TECHNIQUE Mcqueen scale, color flow, and spectral Doppler sonography of the deep venous system of the Bilateral lower extremity FINDINGS RIGHT Common femoral vein: Patent and easily compressible without intraluminal thrombus. Femoral vein: Patent and easily compressible without intraluminal thrombus. Popliteal vein: Patent and easily compressible without intraluminal thrombus. Doppler analysis: Normal venous flow including appropriate response to Valsalva, respiratory variation, and calf augmentation. CALF Posterior tibial vein: Patent and easily compressible without intraluminal thrombus. Peroneal veins: Patent and easily compressible without intraluminal thrombus. LEFT Common femoral vein: Patent and easily compressible without intraluminal thrombus. Femoral vein: Patent and easily compressible without intraluminal thrombus. Popliteal vein: Patent and easily compressible without intraluminal thrombus. Doppler analysis: Normal venous flow including appropriate response to Valsalva, respiratory variation, and calf augmentation. CALF Posterior tibial vein: Patent and easily compressible without intraluminal thrombus. Peroneal veins: Patent and easily compressible without intraluminal thrombus. IMPRESSION No deep venous thrombosis. /[place] DICTATED BY: GURJIT BUCKNER MD DATE: 12/30/242131 ELECTRONICALLY SIGNED BY: GURJIT BUCKNER MD DATE: 12/30/242131 PATIENT: YNES SOLORZANO MR#: [id number] : 1965 SEX: F AGE: 59 LOCATION: [facility] ORDER 23 STATUS: [facility] REPORT#: [id number] SERVICE 21 REASON: SOB ORDERING PHYSICIAN: INA RAMIREZ PROCEDURE: CXR1VW - CHEST 1VW CLINICAL INFORMATION Shortness of breath COMPARISON None. TECHNIQUE Frontal view chest. FINDINGS Lines and tubes: None Lungs: Hazy opacities in the left lung base, may be due to poor radiographic penetration or layering pleural effusion. No dense consolidation. Pleura: Unremarkable. No effusion or pneumothorax. Cardiomediastinal Silhouette: Unremarkable. Bones: Normal for age. Soft Tissues: Bilateral breast spacers. IMPRESSION Hazy opacities in the left lung base, may be due to poor radiographic penetration or layering pleural effusion. No dense consolidation. Consider follow-up two-view radiograph. /[place] DICTATED BY: GURJIT BUCKNER MD DATE: 12/30/242102 ELECTRONICALLY SIGNED BY: GURJIT BUCKNER MD DATE: 12/30/242102 ASSESSMENT: Pneumonia, Acute kidney injury Diabetes mellitus type2 Hypertension Breast CA Asthma History of DVT on chronic anticoagulation with Eliquis Hyperlipidemia PLAN: Labs, diagnostic, radiologic exams reviewed and interpreted by myself and supervising physician. We have reviewed external records in detail Follow Cardiology recommendations Require close monitoring of renal function and electrolytes Order CBC, CMP, and electrolytes in am BiPAP as necessary, for respiratory distress Monitor blood pressure adjust medication doses as needed Avoid hypotensive episodes May use Dilaudid 0.5 mg IV every 6 hours as needed for severe pain Monitor blood sugars Strict intake, output, and daily weight should be monitored Please renally adjust medications Avoid nephrotoxic and nonsteroidal drugs Avoid contrast if possible Will continue to monitor renal function, anemia, electrolytes Treatment plan discussed with patient Questions were answered We have discussed with the other team physicians in detail about the care plan We will continue to monitor the patient closely ATTESTATION BY PHYSICIAN I have seen and examined the patient. I reviewed the documentation, medical decision making, and treatment plan as noted by the mid-level provider above. I agree with the findings and plan of care. MORRIS GABMINO MD, [facility] Jan 02, 2025 13:25
--- NOTE | 2025-01-02 15:43 | PN ---
[facility] PROGRESS NOTE Date Patient Seen: Jan 02, 2025 Time of Visit: 15:35 Supervising Physician: Dr. Krueger PROBLEM LIST: Pneumonia, POA History of long COVID Acute kidney injury, POA Diabetes mellitius type2 Hypertension Breast CA Asthma History of DVT on chronic anticoagulation with Eliquis Hyperlipidemia INTERVAL HISTORY: Patient evaluated at bedside today, she currently remains on room air. Patient with hemoglobin of white count of 5.3, patient's JAVIER has improved today with a creatinine of 1.2, GFR 52. Patient currently continues on Rocephin and doxycycline for suspicion of pneumonia, pending final sputum culture results. Patient with a history of COVID fibrosis as well as radiation therapy to the chest secondary to breast cancer treatment. No leukocytosis on CBC. We will continue monitoring closely pending final results of the culture. Plan Continue antibiotics empirically Follow sputum cultures Supplemental O2 if required Flu and COVID serologies negative History of breast cancer REVIEW OF SYSTEMS: 12 point ROS reviewed with patient. Pertinent positives mentioned above. Otherwise negative. PHYSICAL EXAM: GENERAL: alert, weak, awake oriented x 3 HEENT: EOMI, Sclera non icteric, moist mucosa NECK: Supple, no JVD, trachea midline LUNGS: Clear breath sounds bilaterally. No wheezes HEART: Regular rate and rhythm. Normal S1 and S2, without murmurs ABD: Abdomen soft, nontender. Bowel sounds present EXT: No clubbing cyanosis or edema NEURO: Alert and oriented to person, follows commands Vital Signs (last 8hr) Date Time Temp Pulse Resp B/P (MAP) Pulse Ox O2 Delivery O2 Flow Rate FiO2 01/02/25 11:56 98.4 70 18 160/94 97 Room Air 01/02/25 08:00 98.1 67 18 152/99 98 Room Air 01/02/25 08:00 98 Room Air* 0 21 LABS: Hematology Labs: Test 01/02/25 04:50 Range/Units White Blood Count 5.3 4.8-10.8 K/uL Red Blood Count 3.17 L 4.00-5.50 MIL/uL Hemoglobin 9.8 L 12.0-16.0 g/dL Hematocrit 30.9 L 36-48 % Mean Corpuscular Volume 97.5 79-99 fL Mean Corpuscular Hemoglobin 30.9 27.0-33.0 pg Mean Corpuscular Hemoglobin Concent 31.7 L 32.0-36.0 g/dL Red Cell Distribution Width 19.1 H 11.0-15.5 % Platelet Count 151 130-400 K/uL Mean Platelet Volume 10.4 7.5-10.5 fL Nucleated Red Blood Cells 0.4 H 0.0-0.19 % Chemistry Labs: Test 01/02/25 11:19 01/02/25 04:50 01/01/25 05:29 Range/Units Whole Blood Glucose 78 70-110 MG/DL Bedside Glucose Comment Notified Nurse Sodium Level 144 136-145 mmol/L Potassium Level 3.9 3.5-5.1 mmol/L Chloride Level 110 101-111 mmol/L Carbon Dioxide Level 28 21-32 mmol/L Blood Urea Nitrogen 16 7-18 mg/dL Creatinine 1.2 H 0.5-1.0 mg/dL Glomerular Filtration Rate Calc 52 >90 mL/min Random Glucose 103 70-105 mg/dL Total Calcium 8.7 8.5-10.1 mg/dL Total Bilirubin 0.3 # 0.2-1.0 mg/dL Aspartate Amino Transf (AST/SGOT) 19 10-37 U/L Alanine Aminotransferase (ALT/SGPT) 24 12-78 U/L Alkaline Phosphatase 57 50-136 U/L Total Protein 6.1 6.0-8.3 g/dL Albumin 2.6 L 3.5-5.0 g/dL Uric Acid 5.2 2.6-7.2 mg/dL Magnesium Level 1.80 1.80-2.40 mg/dL DIAGNOSTICS / RADIOLOGY RESULTS: [ ] PLAN NEURO: Minimize central acting medications as possible. Maintain fall precautions, adequate lighting during the day PULMONARY: Supplemental 02 as needed. Maintain aspiration precautions at all times CARDIOVASCULAR: Follow hemodynamics. Vital signs per facility protocol GI & NUTRITION: Continue with nutritional support. Continue stool softeners and laxatives as needed. KIDNEYS & ELECTROLYTES: Strict monitoring of intake, output and overall fluid balance. Avoid nephrotoxic medications to the extent possible. Medications to be dosed according to renal function. Monitor electrolytes and replace as needed ENDOCRINE: Maintain blood glucose between 100-180 at all times. Hypoglycemia protocol in place INFECTIOUS DISEASE: Trend temperature, WBC and procalcitonin level Follow cultures, deescalate antibiotics as soon as possible. Panculture if new onset fever ONCOLOGY/HEMATOLOGY/COAGULATION: Monitor for s/s of bleeding Monitor hemoglobin, coagulation studies as needed SKIN: Pressure ulcer prevention per facility protocol Specialty mattress ORTHO/REHAB: Continue PT/OT Prophylaxis: Continue GI and DVT prophylaxis Code Status: Full Resuscitation Disposition: TBD Other: Total patient care time exceeds 35 minutes excluding all procedures. LETTY LOPES Jan 02, 2025 15:43
--- NOTE | 2025-01-02 15:47 | HMCSR ---
APPROVED REPORT EXAM: Two-dimensional and M-mode echocardiogram with Doppler and color Doppler. INDICATION ICD: possible apical thrombus Contrast Details Indication: Rule out thrombus Agent/Amount Used: Optison Left Ventricle No left ventricle thrombus noted on this study.
--- NOTE | 2025-01-02 18:41 | NUR ---
DISCHARGED patient given printed discharge paperwork, educated patient regarding diet, activity, follow up visits (patient to contact Dr. Soria' office), medications, signs and symptoms to report/return to ER. answered patient questions, patient understood. gave report to Buddy KHALIL. spoke to JEET Hastings, dressing to be changed every other day. per nurse they will be "Admitting" patient sunday. Dressing was changed today with dr. soria. Addendum: 01/02/25 at 1845 by VARUN LEDESMA RN RN ENTERED IN ERROR WRONG PATIENT
--- NOTE | 2025-01-02 20:16 | PN ---
Patient feels well and is eager to go home. Echocardiogram with contrast shows no evidence of thrombus. Patient has history of breast cancer, followed actively by [facility] and has an appointment with a primer inserting machine adjuster there. Has history of coagulopathy with pulmonary emboli and DVT and has been anticoagulated but was off Eliquis temporarily. Patient has ample expertise to direct her care and does not appear to have LV thrombus, so from our perspective she can be discharged. Vitals/Labs Vital Signs Date Time Temp Pulse Resp B/P (MAP) Pulse Ox O2 Delivery O2 Flow Rate FiO2 01/02/25 18:37 78 18 N/A Room Air 21 01/02/25 16:00 98.1 164/87 98 01/02/25 08:00 0 Laboratory Tests 01/02/25 04:50 Medications Current Medications Doxycycline Hyclate 250 ml @ 125 mls/hr Q12H IV Last administered on 01/02/25at 09:29; Start 12/30/24 at 22:00; Stop 01/09/25 at 21:59 Acetaminophen 650 mg Q6H PRN PO; Start 12/30/24 at 22:00; Stop 01/29/25 at 21:59 Ceftriaxone Sodium 1 gm Q24H IV Last administered on 01/01/25at 20:23; Start 12/30/24 at 22:00; Stop 01/09/25 at 21:59 Albuterol 1 UDVIAL [id number] IH Last administered on 01/01/25at 07:11; Start 12/31/24 at 00:00; Stop 01/02/25 at 11:22; Status DC Guaifenesin 400 mg Q4H PRN PO Last administered on 01/02/25at 08:19; Start 12/30/24 at 22:00; Stop 01/29/25 at 21:59 Heparin Sodium (Porcine) 5,000 unit BID SQ; Start 12/31/24 at 09:00; Stop 12/31/24 at 00:21; Status DC Hydralazine HCl 10 mg Q6H PRN IV; Start 12/30/24 at 22:00; Stop 01/29/25 at 21:59 Lactated Ringer's 1,000 ml @ 75 mls/hr [id number] IV Last administered on 01/02/25at 16:45; Start 12/30/24 at 22:00; Stop 01/29/25 at 21:59 Morphine Sulfate 2 mg Q4H PRN IVP; Start 12/30/24 at 22:00; Stop 01/06/25 at 21:59 Ondansetron HCl 4 mg Q6H PRN IV; Start 12/30/24 at 22:00; Stop 01/29/25 at 21:59 Pantoprazole Sodium 40 mg DAILY PO Last administered on 01/02/25at 08:19; Start 12/31/24 at 09:00; Stop 01/30/25 at 08:59 Insulin Human Regular INSULIN SLIDING SCAL... ACHS SQ; Start 12/31/24 at 07:30; Stop 01/30/25 at 07:29 Sodium Chloride 4 ml STK-MED ONCE IH Last administered on 12/31/24at 00:34; Start 12/31/24 at 00:12; Stop 12/31/24 at 00:13; Status DC Atorvastatin Calcium 40 mg HS PO Last administered on 01/02/25at 19:47; Start 12/31/24 at 21:00; Stop 01/30/25 at 20:59 Albuterol Sulfate 2.5 mg [id number] IH; Start 12/31/24 at 06:00; Stop 01/30/25 at 05:59 Apixaban 5 mg BID PO Last administered on 01/02/25at 19:47; Start 12/31/24 at 09:00; Stop 01/30/25 at 08:59 Amlodipine Besylate 5 mg HS PO Last administered on 01/02/25at 19:47; Start 12/31/24 at 21:00; Stop 01/30/25 at 20:59 EZETIMIBE 10 mg HS PO Last administered on 01/02/25at 19:47; Start 12/31/24 at 21:00; Stop 01/30/25 at 20:59 Acetaminophen/ Hydrocodone Bitart 1 tab TIDP PRN PO; Start 12/31/24 at 12:00; Stop 01/05/25 at 11:59 Ketoconazole 1 appl DAILY PRN TP; Start 12/31/24 at 12:00; Stop 01/30/25 at 11:59 Latanoprost 1 drop HS OP Last administered on 12/31/24at 20:52; Start 12/31/24 at 21:00; Stop 01/01/25 at 07:06; Status DC Lisinopril 40 mg DAILY PO Last administered on 01/02/25at 08:19; Start 01/01/25 at 09:00; Stop 01/31/25 at 08:59 Loperamide HCl 2 mg AD PO; Start 12/31/24 at 12:00; Stop 01/30/25 at 11:59 Tramadol HCl 50 mg Q6H PRN PO; Start 12/31/24 at 12:00; Stop 01/05/25 at 11:59 Miscellaneous Medication 2 puff Q4HPRN PRN IH; Start 12/31/24 at 12:00; Stop 12/31/24 at 12:23; Status DC Home Med Alpha Lipoic Acid ... BID PO; Start 12/31/24 at 21:00; Stop 01/30/25 at 20:59 Home Med 1 each DAILY PO; Start 01/01/25 at 09:00; Stop 01/31/25 at 08:59 Home Med 1 each BID PO; Start 12/31/24 at 21:00; Stop 01/30/25 at 20:59 Home Med 1 each Q6H PRN PO; Start 12/31/24 at 12:30; Stop 01/30/25 at 12:29 Latanoprost 1 DROP HS OP Last administered on 01/01/25at 20:20; Start 01/01/25 at 21:00; Stop 01/30/25 at 20:59 Benzocaine 1 each Q4H PRN MM Last administered on 01/02/25at 08:19; Start 01/01/25 at 11:30; Stop 01/31/25 at 11:29 Albumin Human 0.22 mg ONCE ONCE IV; Start 01/01/25 at 15:30; Stop 01/01/25 at 15:28; Status DC Albuterol 1 UDVIAL [id number] PRN IH; Start 01/02/25 at 11:30; Stop 01/30/25 at 00:00 BRANDI HILL MD Jan 02, 2025 20:16
--- NOTE | 2025-01-02 20:30 | NUR ---
CARDIOLOGY DR HILL TO SEE AND EXAMEN PATIENT WITH ORDERS FOR DISCHARGE FROM CARDIOLOGY STAND POINT
--- NOTE | 2025-01-02 20:45 | NUR ---
DISCHARGE INSTRUCTIONS SPOKE TO HOSPITALIST Z [employer] PROGRAMMER RAVI POTTER REGARDING DISCHARGE ORDER FROM CARDIOLOGY STAND POINT, PER DR. HERRMANN STANDING ORDER TO DISCHARGE HOME WHEN CLEARED FROM CARDIOLOGY STAND POINT, DISCHARGE INSTRUCTIONS GIVEN TO PATIENT, PATIENT VERBALIZES UNDERSTANDING VIA TEACH BACK, DISCONTINUED MIDLINE RIGHT UPPER ARM, NO BLEEDING NOTICED APPLY 2X2 DRESSING AND ADAPTIC TAPE, TOLERated well
--- NOTE | 2025-01-02 21:00 | NUR ---
discharge discharge home via wheel chair accompanied by patients son, personal belongings with patient
--- NOTE | 2025-01-03 07:43 | DS ---
Discharge Summary Hospital Course Summary: Date of service January 02, 2025 The patient initially admitted to the hospital on December 30/2025 with the following history of the present illness: Ms. Peres is a 59-year-old female that was seen and examined today on 12/30/2024. Patient is a good historian of personal health Patient reports that she came to the emergency department with a chief complaint of lower extremity edema. Onset was two weeks ago. Location is bilateral lower extremities. Duration is on and off progressively getting worse over the last two months. There was no alleviating factors. There was no aggravating factors. Patient denies any associated shortness of breath or chest pain. Today in the emergency department creatinine 1.5, BUN 27, no urinalysis has been collected or sent to lab, chest x-ray shows left lower lobe opacities, venous ultrasound is unremarkable. Emergency room physician recommended that patient be admitted with a diagnosis of pneumonia and acute kidney injury. HOSPITAL COURSE 12/31 The patient has been seen and examined at bedside, case discussed with the RN, no acute events overnight, the time of my visit the patient following commands company complaining of mild dry nonproductive cough, no chest pain, shortness shortness for breath, no nausea, no vomiting. BP 123/79, afebrile. Chest x-ray showing hazy opacity of left lung bases maybe due to poor radiographic penetration or layering pleural effusion, no disc consolidation. I have requested a CT of the chest for further evaluation, pulmonary consultation, requested. Follow serology test to include influenza type a and B, rapid strep, SARS antigen, Streptococcus and Legionella antigen. Continue the patient on broad-spectrum IV antibiotics. Follow results of sputum culture. 01/01 The patient has been seen and examined at bedside, case discussed with the RN, no acute events overnight, obtain a limited 2D echocardiogram with Definity contrast to evaluate for apical thrombus, we will follow up. 815 patient remains admitted to the medical floor, cardiology input noted and appreciated, okay for the patient to be discharged home, echocardiogram with contrast shows no evidence of thrombus. [employer] Car Builder(s): Cardiology and Pulmonary Services Assessment/Plan: Final diagnosis Pneumonia ruled out Acute kidney injury, POA Diabetes mellitius type2 Hypertension Breast CA Asthma History of DVT on chronic anticoagulation with Eliquis Hyperlipidemia Apical thrombus ruled out Discharge Instructions: Patient to be discharged home, to follow with the primary care physician as well as oncologist at [facility] as an outpatient, return to hospital if condition changes. Patient agreed with plan and understood the information provided Home Medications: Active Scripts Cefdinir (Cefdinir) 300 Mg Capsule, 1 CAP PO BID for 10 Days, #20 CAP 0 Refills Prov:KINJAL HERRMANN MD 01/01/25 Doxycycline Monohydrate (Doxycycline Monohydrate) 100 Mg Capsule, 1 CAP PO BID, #20 CAP 0 Refills Prov:KINJAL HERRMANN MD 01/01/25 Reported Medications Loperamide HCl (Imodium) 2 Mg Cap, 2 MG PO AD, CAP 12/31/24 Tramadol Hcl (Tramadol HCl) 50 Mg Tablet, 50 MG PO Q6HPRN PRN for PAIN LEVEL 6 TO 10, TAB 12/31/24 Prochlorperazine Maleate (Prochlorperazine Maleate) 10 Mg Tablet, 1 TAB PO Q6H PRN for NAUSEA for 15 Days, #60 TAB 0 Refills 12/31/24 Pregabalin (Pregabalin) 150 Mg Capsule, 1 CAP PO BID MDD 2 Capsule(s) for 30 D ays, #60 CAP 0 Refills 12/31/24 Metformin HCl (Metformin HCl) 500 Mg Tablet, 1 TAB PO BID for 30 Days, #60 TAB 0 Refills 12/31/24 Lisinopril (Lisinopril) 40 Mg Tablet, 1 TAB PO DAILY for 30 Days, #30 TAB 0 Refills 12/31/24 Letrozole (Letrozole) 2.5 Mg Tablet, 1 TAB PO DAILY for 30 Days, #30 TAB 0 Refills 12/31/24 Latanoprost (Latanoprost) 0.005 % Drops, 1 DROP OP HS, ML 0 Refills 12/31/24 Ketoconazole (Ketoconazole) 2 % Cream.gm., 1 APPL TP DAILY PRN for ITCHING for 14 Days, #60 GM 0 Refills apply to affected area(s) 12/31/24 Hydrocodone/Acetaminophen (Hydrocodon-Acetaminophen 5-325) 5 Mg-325 Mg Tablet, 1 TAB PO TIDP PRN for pain for 30 Days, #60 TAB 0 Refills 12/31/24 Ezetimibe (Ezetimibe) 10 Mg Tablet, 10 MG PO HS, TAB 12/31/24 Budesonide (Budesonide) 0.5 Mg/2 Ml Ampul.neb, 1 VIAL NEB BID PRN for SHORTNESS OF BREATH/WHEEZING for 30 Days, #120 ML 0 Refills 12/31/24 Apixaban (Eliquis) 2.5 Mg Tablet, 1 TAB PO BID for 30 Days, #60 TAB 0 Refills 12/31/24 Amlodipine Besylate (Norvasc) 5 Mg Tablet, 5 MG PO HS, TAB 12/31/24 Alpha Lipoic Acid (Alpha Lipoic Acid) 600 Mg Capsule, 600 MG PO BID, CAP 12/31/24 Albuterol Sulfate (Ventolin Hfa) 90 Mcg Hfa.aer.ad, 2 PUFF IH Q4HPRN PRN for wheezing for 30 Days, #18 GM 0 Refills 12/31/24 Acetaminophen (Acetaminophen) 325 Mg Tablet, 650 MG PO Q6HPRN PRN for PAIN LEVEL 1 TO 3, TAB 12/31/24 Discontinued Scripts Fluticasone Propionate (Flonase Nasal [place]) 50 Mcg/Actuation [place], 50 MCG NASAL ONCE, #1 BOTTLE 0 Refills Prov:[facility] 04/11/23 Cephalexin Monohydrate (Keflex) 500 Mg Cap, 500 MG PO TID for 7 Days, #21 CAP 0 Refills Prov:[facility] 04/11/23 Oseltamivir Phosphate (Tamiflu) 75 Mg Cap, 75 MG PO BID for 5 Days, #10 CAP 0 R efills Prov:[facility] 04/11/23 Time spent arranging discharge: 31-60 minutes KINJAL HERRMANN MD Jan 03, 2025 07:43
== END 2025-01-02 21:00 | disposition home or self-care (01) | DRG 683 ==
LOC: EDH 18:57 → EDHIP 18:58 → 4BH 12-31 02:26
PROVIDERS: ADMIT Internal Medicine; ATTEND Internal Medicine
DX: N17.9 Acute kidney failure, unspecified (principal); N39.0 Urinary tract infection, site not specified; E11.22 Type 2 diabetes mellitus with diabetic chronic kidney disease; E78.00 Pure hypercholesterolemia, unspecified; I12.9 Hypertensive chronic kidney disease with stage 1 through stage 4 chronic kidney disease, or unspecified chronic kidney disease; N18.31 Chronic kidney disease, stage 3a; J45.909 Unspecified asthma, uncomplicated; E88.09 Other disorders of plasma-protein metabolism, not elsewhere classified; Z51.5 Encounter for palliative care; Z79.01 Long term (current) use of anticoagulants; Z79.899 Other long term (current) drug therapy; Z85.3 Personal history of malignant neoplasm of breast; Z86.711 Personal history of pulmonary embolism; Z86.718 Personal history of other venous thrombosis and embolism; Z88.2 Allergy status to sulfonamides; Z90.13 Acquired absence of bilateral breasts and nipples; Z90.710 Acquired absence of both cervix and uterus
CPT/HCPCS: 36415; 36556; 71045; 71250; 76770; 80048; 80053; 81001; 82570; 82948; 83036; 83605; 83735; 83880; 83935; 84100; 84145; 84300; 84484; 84550; 85025; 85027; 85610; 87040; 87071; 87086; 87186; 87205; 87426; 87449; 87804; 93005; 93306; 93308; 93356; 93970; 94640; 94664; 96374; 99285; C1751; C1894; G0378; J0696; J1815; J2270; J3490; J7120; Q9956